=== PATIENT | female | born 1945 | race Caucasian/White ===

== ENCOUNTER 2020-03-09 11:57 | Outpatient (REF) | payer MEDICARE, OTHER, SELFPAY ==
[2020-03-09 20:58] LABS: ALT 63 U/L (14-59); AST 39 U/L (15-37); Albumin 3.5 g/dL (3.4-5.0); Alkaline Phosphatase 75 U/L (46-116); Anion Gap 7.9 mmol/L (3-11); BUN 8 mg/dL (7-18); Bilirubin, Total 0.4 mg/dL (0.2-1.0); CO2 26.1 mmol/L (21.0-32.0); CREATININE 0.71 mg/dL (0.55-1.02); Calcium 8.5 mg/dL (8.5-10.1); Calculated LDL 127 mg/dL (<100); Chloride 105 mmol/L (98-107); Cholesterol 215 mg/dL (<200); Glucose 93 mg/dL (74-106); HDL Cholesterol 45 mg/dL (40-60); Potassium 4.4 mmol/L (3.5-5.1); Sodium 139 mmol/L (136-145); TSH 2.97 uIU/mL (0.36-3.74); Triglyceride 217 mg/dL (<150); Vitamin B12 368 pg/mL (193-986)
[2020-03-09 21:12] LABS: Bilirubin, Direct 0.06 mg/dL (0.00-0.20)
== END 2020-03-09 12:17 ==
LOC: NCHCN 11:57
PROVIDERS: PCP Family Medicine; Visit Provider Family Medicine
DX: R44.8 Other symptoms and signs involving general sensations and perceptions (principal); E78.5 Hyperlipidemia, unspecified; H81.10 Benign paroxysmal vertigo, unspecified ear; Z68.41 Body mass index [BMI] 40.0-44.9, adult
CPT/HCPCS: 80053; 80061; 80076; 82607; 84443

== ENCOUNTER 2020-03-16 01:41 | Outpatient (CLI) | payer MEDICARE, OTHER, SELFPAY ==
--- NOTE | 2020-03-16 | DI.MRI_ITS ---
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 Both noninfused and contrast i nfused sequences were performed. Additional pre and post contrast infused sequences through the inte rnal auditory canals-cerebellopontine angles was performed and we also performed an additional high-r esolution sub millimeter slice T2 weighted sequence through the internal auditory canals. IV Contrast injected was 20 cc Dotarem. COMPARISON: No exams were available for comparison FINDINGS: INTERNAL AUDITORY CANALS: There is no evidence of mass in the cerebellopontine angles. The 7th and 8 th nerves are well visualized throughout the length of both internal auditory canals and appear unrem arkable. Extracranial 5th nerves also appear unremarkable as they course anteriorly towards Meckel's cave on both sides. CEREBRAL PARENCHYMA: No evidence of intracranial hemorrhage, mass effect nor shift of midline structu re. No extraaxial fluid collections. Ventricles are not enlarged nor shifted. There is no significant focal signal abnormality in the cerebellar hemispheres nor within the sri, m idbrain, and thalami. There is some mild nonspecific increased signal in the periventricular white matter. No evidence of territorial infarction. No abnormal signal on diffusion imaging. There are no ring enhancing lesions in the brain. There is no abnormal meningeal enhancement. PITUITARY GLAND: No significant mass nor parasellar abnormality. No obvious abnormality in the cavern ous sinuses. FLOW VOIDS: The expected flow void are noted. No evidence of obvious aneurysm nor obvious vascular ma lformation. PARANASAL SINUSES: The visualized paranasal sinuses appear unremarkable. ORBITS: No obvious abnormal findings. IMPRESSION: 1. No evidence of mass in the cerebellopontine angles and no evidence of intra canalicular acoustic n euroma/schwannoma. 2. No abnormal enhancing intracranial findings. No abnormal meningeal enhancement. 3. Nonspecific periventricular white foci, not associated with hemorrhage, enhancement, no abnormal signal on diffusion imaging and therefore nonspecific. DATA REPOSITORY:
[2020-03-16] MEDS: Gadoterate meglumine 20 ML VIAL IVP (14:51)
[2020-03-16] MEDS: Normal Saline Flush 10 ML SYR IVP (14:51)
== END 2020-03-16 02:01 ==
PROVIDERS: PCP Family Medicine; Visit Provider Family Medicine
DX: H81.23 Vestibular neuronitis, bilateral (principal); H81.13 Benign paroxysmal vertigo, bilateral
CPT/HCPCS: 70553

== ENCOUNTER 2020-07-23 02:14 | Outpatient (CLI) | payer MEDICARE, OTHER, SELFPAY ==
--- NOTE | 2020-07-23 10:18 | DI.MAMMO_ITS ---
Exam(s) MG MAMMO SCREENING 60 MIN DUR EXAM: MG MAMMO SCREENING 60 MIN DUR CLINICAL HISTORY: SCREENING, Z12.39, IMPLANTS TECHNIQUE: Mammograms were interpreted according to the usual protocol including computer analysis w [employer]metry[employer] CAD system, tomosynthesis and C-view imaging. COMPARISON: FINDINGS: The breasts are of moderate density. There are bilateral mammary implants. Routine views and implant displaced views were obtained. No mass or clumped microcalcification identified in either breast. Com parison with previous examinations including October 2016 shows no gross interval change from the prio r studies. IMPRESSION: No specific evidence of malignancy at this time. Routine screening examinations are suggested at year ly intervals in this age group according to the ACS ACR guidelines. BI-RADS Category 1 - Negative Breast Density - Category B - Scattered areas of fibroglandular density
== END 2020-07-23 02:34 ==
PROVIDERS: PCP Family Medicine; Visit Provider Family Medicine
DX: Z12.31 Encounter for screening mammogram for malignant neoplasm of breast (principal); Z98.82 Breast implant status
CPT/HCPCS: 77063; 77067

== ENCOUNTER 2020-08-12 18:34 | Emergency (ER) | payer MEDICARE, OTHER, SELFPAY ==
[2020-08-12 18:44] VITALS: BP 133/72; PULSE 94; RESP 18; TEMP 36.6; O2SAT 94
--- NOTE | 2020-08-12 19:57 | DI.RAD_ITS ---
Exam(s) XR FOOT LT COMPLETE EXAM: XR FOOT LT COMPLETE CLINICAL HISTORY: pain at base of 1 mtp. TECHNIQUE: 2D digital imaging was performed. COMPARISON: No exams were available for comparison FINDINGS: There is a linear lucency in the lateral aspect of the base of the 3rd metatarsal seen on the oblique view. This is possibly a nondisplaced fracture line.. No diastasis of the Lisfranc joint. There i s a sclerotic density in the plantar soft tissues measuring 6 x 5 millimeters subjacent to the neck o f the great toe metatarsal. An accessory ossicle is noted lateral to the cuboid bone. Small inferio r calcaneal spur is noted. No pes planus. No tarsal coalition evident. IMPRESSION: Possible subtle nondisplaced fracture base of the 3rd metatarsal. Correlation with site of tendernes s is recommended. DATA REPOSITORY: RADIATION DOSE DELIVERED:
--- NOTE | 2020-08-12 20:18 | DI.VRAD_ITS ---
PROCEDURE INFORMATION: Exam: XR Left Foot Exam date and time: 08/12/2020 7:18 PM Age: 75 years old Clinical indication: Pain; Foot; Left TECHNIQUE: Imaging protocol: XR Left foot. Views: 3 or more views. COMPARISON: No relevant prior studies available. FINDINGS: Bones/joints: Linear lucency is demonstrated projecting in lateral aspect, proximal shaft of the 3rd metatarsal on the frontal view, not demonstrated on oblique or lateral views. No subluxation. Degenerative changes. Soft tissues: Soft tissue swelling in plantar region about metatarsals. IMPRESSION: 1. Nondisplaced fracture cannot be excluded in proximal aspect 3rd metatarsal. 2. Soft tissue swelling. Dictated and Authenticated by: Royal Edwards MD. Ordering:LISSY Jiang MD
--- NOTE | 2020-08-12 22:25 | W.ED.GENAD ---
Discharge Plan Disposition Patient Disposition: HOME Condition: Stable Discharge Details Chief Complaint: Orthopedic Clinical Impression: Foot pain Primary Care Provider: Geno Delacruz V ED Provider: Apolinar Anderson Discharge Instructions Instructions: Foot Sprain (ED) Discharge Data Discharge Date/Time-TO BE ENTERED AT DEPARTURE: 08/12/20 20:50 Medical Decision Making 75-year-old female presents with left foot pain that began after wearing different shoes. She does have a blister on the third toe which appears to be noninfected. No evidence of DVT. Neuro, vascular, tendon intact. She does have discomfort over the medial and plantar aspect just proximal to the first MTP joint. She is scheduled be seen by her primary care provider tomorrow. Discussed options, initially she is requesting just an [place] wrap but is agreeable to obtaining an x-ray. X-ray obtained, discussed results with patient. Clinically patient has no discomfort over the proximal aspect of the third metatarsal. Clinical correlation of the x-ray leads to very little suspicion of acute fracture. Discussed options. Patient declines a walking boot. She would like an Juliano wrap and then to be discharged. She does not want to wait for her discharge instructions. Juliano wrap was applied and she was verbally discharged. She will follow up with her primary care provider tomorrow. Otherwise she will wear the Juliano wrap as tolerated, rest, elevate, cool and/or warm compresses. She declined any cane, crutches, walker, etc. She will use [id number] Tylenol and/or Motrin as directed for discomfort. Encouraged to return to the ER for new or worsening symptoms. Again, patient was verbally discharged, had no additional questions or concerns upon discharge. Medical Records Medical records reviewed: Yes I reviewed the patient's medical records. Imaging Data Radiologic Study: Attestation: I personally reviewed and interpreted this imaging study as follows: Imaging: X-Ray Radiologist's impression: X-ray of left foot reveals soft tissue swelling. Nondisplaced fracture cannot be excluded in the proximal aspect third metatarsal HPI General Mode of arrival: ambulatory. Date/Time Provider Initiated Documentation: 08/12/20 18:55. Limitations to Documentation: no limitations. Information obtained by: patient. HPI Narrative: This is a 75-year-old female, complaining of left foot pain and swelling. She denies history of DVT or PE. She states that approximately 2 weeks ago she began wearing new shoes and developed a sore or blister on her third toe. Subsequently she stopped wearing those shoes but then wore different-new shoes to yarsanism. She states that they did not fit properly and she needed to curl her toes to grab onto her shoes so she would not lose them. After this she began having increased pain at which she describes as the base of the great toe more so on the medial and plantar aspect. She denies any overt injury, redness, bruising, numbness, tingling, weakness, pain or swelling in her calf. She has appointment with her primary care provider tomorrow regarding the same issue however she states that her daughter looked at her foot and thought it looked discolored so she decided to come to the ER for further evaluation. She is concerned how long this ER visit is going to take, she is requesting that we simply Juliano wrap her foot and let her go. After further discussion, she is agreeable to a limited work-up. She states that the pain is moderate at rest, worse with movement or bearing weight, and it feels like she pulled my toe. Denies history of gout. General Stated Complaint: Orthopedic PRATIBHA: 4 Review of Systems Constitutional Constitutional: Denies fever(s) and Denies weakness Cardiovascular Cardiovascular: Denies chest pain and Denies dyspnea Respiratory Respiratory: Denies cough and Denies dyspnea Musculoskeletal Musculoskeletal: Denies deformity, Reports arthralgias, Denies joint swelling, Denies numbness, Reports stiffness and Denies tingling Integumentary/Breasts Skin/Breast: Denies erythema and Denies rash Neurologic Neurologic: Denies numbness, Denies tingling and Denies weakness [facility] Social History Smoking risk assessment performed?: No Exam Const General: cooperative, healthy appearing, comfortable and no acute distress Orientation: alert and awake [facility] Head: normal to inspection, normocephalic and atraumatic Eyes General: appearance normal, both eyes and all related structures Conjunctivae: conjunctivae normal Neck Neck: normal visual inspection, trachea midline and supple Resp Effort & Inspection: normal respiratory effort and able to speak in complete sentences Auscultation: clear to auscultation bilaterally Cardio Rate: regular rate Rhythm: regular rhythm Skin General skin exam: no rashes or lesions noted Neuro General: patient alert, patient awake, moves all extremities and no focal motor deficits Cognition: normal cognition Speech: speech normal Gait: antalgic Motor: muscle tone normal throughout Sensory Exam: no sensory deficits noted Extrem General: full ROM and capillary refill normal Left lower extremity: normal capillary refill Ankle/foot/toe images: 1. Shallow, nontender ruptured blister. There is no erythema, warmth, drainage. Neuro, vascular, tendon intact. Full range of motion. 2. Chest proximal to the first MTP joint, both on the medial and plantar aspect there is minimal swelling with diffuse discomfort. There is no warmth or erythema. There is no point tenderness over the flexor aspect of the MTP joint. Normal capillary refill. Limited range of motion of the great toe secondary to discomfort. Neuro, vascular, tendon intact. 3. There is a minimal amount of swelling across the extensor aspect of the foot. There is no temperature discrepancy. Normal capillary refill. Normal dorsalis pedal pulse. Neuro, vascular, tendon intact. Other: Left leg, hip, knee, calf unremarkable. Negative Homans' sign. No palpable cord. Calf without erythema, warmth, discomfort. Psych Appearance: grossly normal Mental Status: mental status grossly normal Course Vital Signs Vital signs: Vital Signs Temperature 36.6 C 08/12/20 18:44 Pulse 94 H 08/12/20 18:44 Respiratory Rate 18 08/12/20 18:44 Blood Pressure 133/72 08/12/20 18:44 Pulse Oximetry 94 08/12/20 18:44 Temperature 36.6 C 08/12/20 18:44 Temperature Source Oral 08/12/20 18:44 Pulse 94 H 08/12/20 18:44 Respiratory Rate 18 08/12/20 18:44 Respiratory Effort 08/12/20 19:55 Blood Pressure 133/72 08/12/20 18:44 Pulse Oximetry 94 08/12/20 18:44 Oxygen Delivery Method Room Air 08/12/20 18:44 Oxygen Flow Rate 0 08/12/20 18:44 Pain Level 6 08/12/20 18:44 Comment 08/12/20 18:44
== END 2020-08-12 20:50 | disposition home or self-care (01) ==
LOC: ER 18:50
PROVIDERS: Emergency Provider Physician Assistant; PCP Family Medicine
DX: M79.672 Pain in left foot (principal)
CPT/HCPCS: 99283; 73630

== ENCOUNTER 2020-09-01 00:50 | Outpatient (CLI) | payer MEDICARE, OTHER, SELFPAY ==
--- NOTE | 2020-09-01 09:36 | DI.RAD_ITS ---
Exam(s) XR KNEE RT 3V AP,LAT,MIGUEL EXAM: XR KNEE RT 3V AP,LAT,MIGUEL CLINICAL HISTORY: rt knee pain, m25.561. TECHNIQUE: 2D digital imaging was performed. COMPARISON: No exams were available for comparison FINDINGS: There is a right total knee replacement. There is lucency about the tibial component medially and la terally. The orthopedic hardware is otherwise unremarkable. No acute fracture or dislocation is see n. The soft tissues are unremarkable. Please correlate with patient's symptoms for loosening or inf ection. Follow-up as clinically appropriate. IMPRESSION: DATA REPOSITORY: RADIATION DOSE DELIVERED:
== END 2020-09-01 01:10 ==
PROVIDERS: PCP Family Medicine; Visit Provider Family Medicine
DX: M25.561 Pain in right knee (principal); Z96.651 Presence of right artificial knee joint
CPT/HCPCS: 73562

== ENCOUNTER 2021-04-27 15:24 | Outpatient (REF) | payer MEDICARE, SELFPAY ==
[2021-04-27 19:38] LABS: HCT 41.5 % (36.0-46.0); HGB 13.3 g/dL (11.2-15.7); MCV 93.7 fL (80-95); MPV 11.4 fL (8.0-11.0); Platelet Count 328 10^3/uL (130-400); RBC 4.43 10^6/uL (3.93-5.22); RDW 12.3 % (11.7-14.6); RDW-SD 42.7 fL; WBC 6.76 10^3/uL (4.4-10.8)
[2021-04-27 19:57] LABS: Hemoglobin A1C 5.7 % (<5.7)
[2021-04-27 20:23] LABS: ALT 91 U/L (14-59); AST 55 U/L (15-37); Albumin 3.7 g/dL (3.4-5.0); Alkaline Phosphatase 78 U/L (46-116); Anion Gap 8.1 mmol/L (3-11); BUN 11 mg/dL (7-18); Bilirubin, Total 0.4 mg/dL (0.2-1.0); CO2 28.9 mmol/L (21.0-32.0); CREATININE 0.7 mg/dL (0.55-1.02); Calcium 9.2 mg/dL (8.5-10.1); Chloride 102 mmol/L (98-107); Glucose 91 mg/dL (74-106); Potassium 4.6 mmol/L (3.5-5.1); Sodium 139 mmol/L (136-145); TSH (W/Ref FT4) 2.98 uIU/mL (0.36-3.74); Total Protein 7.3 g/dL (6.4-8.2); Vitamin B12 387 pg/mL (193-986)
== END 2021-04-27 15:25 | disposition home or self-care (01) ==
LOC: NCHCN 15:24
PROVIDERS: PCP Family Medicine; Visit Provider Family Medicine
DX: Z86.2 Personal history of diseases of the blood and blood-forming organs and certain disorders involving the immune mechanism (principal); G62.9 Polyneuropathy, unspecified; R79.89 Other specified abnormal findings of blood chemistry
CPT/HCPCS: 80053; 85027; 82607; 83036; 84443

== ENCOUNTER 2021-05-28 17:56 | Outpatient (REF) | payer MEDICARE, SELFPAY ==
[2021-05-31 13:54] LABS: COVID-19 RT-PCR UVMMC Result Negative (Negative)
== END 2021-05-28 17:57 | disposition home or self-care (01) ==
LOC: NCHCN 17:56
PROVIDERS: PCP Family Medicine; Visit Provider Family Medicine
DX: Z20.822 Contact with and (suspected) exposure to COVID-19 (principal)
CPT/HCPCS: U0003

== ENCOUNTER 2021-06-06 14:28 | Inpatient (IN) | payer MEDICARE, SELFPAY ==
[2021-06-06] VITALS (36 sets, daily range): BP systolic 117–157; BP diastolic 67–132; PULSE 103–128; RESP 14–27; TEMP 36.1–36.6; O2SAT 86–99
--- NOTE | 2021-06-06 15:00 | DI.RAD_ITS ---
Exam(s) XR ABD FLAT UPRIGHT PA CHEST EXAM: XR ABD FLAT UPRIGHT PA CHEST CLINICAL HISTORY: vomiting. TECHNIQUE: 2D digital imaging was performed. COMPARISON: CR LEFT SHOULDER COMPLETE from 07/06/[address] ABDOMEN PELVIS WO from 06/06/2021 FINDINGS: 3 views Chest x-ray: Heart size normal. Mediastinum is not widened. Lungs are clear. No pleural effusions. Abdomen some dilated bowel loops. No free air. Difficult to assess accurately due to technique See separate CT report IMPRESSION: DATA REPOSITORY: RADIATION DOSE DELIVERED:
[2021-06-06 15:01] LABS: Abs Immature Grans 0.05 10^3/uL (0.0-0.06); Absolute Basophil Count 0.01 10^3/uL (0.0-0.2); Absolute Eosinophil Count 0.01 10^3/uL (0.0-0.7); Absolute Lymphocyte Count 1.07 10^3/uL (1.2-3.4); Absolute Monocyte Count 0.96 10^3/uL (0.1-0.8); Absolute Neutrophil Count 12.49 10^3/uL (1.2-6.7); Basophils % 0.1; Eosinophils % 0.1; HCT 31.9 % (36.0-46.0); HGB 10.6 g/dL (11.2-15.7); Immature Grans % 0.3; Lymphocytes % 7.3; MCH 30.1 pg (27.0-33.0); MCHC 33.2 % (32.0-36.0); MCV 90.6 fL (80-95); MPV 11.1 fL (8.0-11.0); Monocytes % 6.6; Neutrophils % 85.6; Nucleated RBC 0 %; Platelet Count 322 10^3/uL (130-400); RBC 3.52 10^6/uL (3.93-5.22); RDW 12.5 % (11.7-14.6); RDW-SD 40.8 fL; WBC 14.59 10^3/uL (4.4-10.8)
[2021-06-06] MEDS: Lactated Ringers 500 ML IV (15:11)
[2021-06-06] MEDS: HYDROmorphone 2 MG/ML VIAL 0.5 MG IVP (15:19)
[2021-06-06] MEDS: Famotidine 20 MG/2 ML VIAL IVP (15:22)
[2021-06-06 15:23] LABS: ALT 29 U/L (14-59); AST 23 U/L (15-37); Alkaline Phosphatase 73 U/L (46-116); Anion Gap 9.9 mmol/L (3-11); BUN 17 mg/dL (7-18); Bilirubin, Total 0.7 mg/dL (0.2-1.0); CO2 26.1 mmol/L (21.0-32.0); CREATININE 0.7 mg/dL (0.55-1.02); Calcium 8.7 mg/dL (8.5-10.1); Chloride 98 mmol/L (98-107); Glucose 135 mg/dL (74-106); Lipase 52 U/L (73-393); Magnesium 1.9 mg/dL (1.8-2.4); Potassium 3.6 mmol/L (3.5-5.1); Sodium 134 mmol/L (136-145); Troponin I < 50 ng/L (<or=60)
--- NOTE | 2021-06-06 15:45 | DI.CT_ITS ---
Exam(s) CT ABDOMEN PELVIS WO EXAM: CT ABDOMEN PELVIS WO CLINICAL HISTORY: vomiting post knee sx, assess for sbo. TECHNIQUE: Imaging Protocol: Axial computed tomography images with coronal and sagittal reformatted images were created and reviewed CONTRAST MATERIAL: Intravenous: none Oral: None COMPARISON: No exams were available for comparison FINDINGS: VISUALIZED LUNG BASES: No infiltrates. No pleural effusions.. Bilateral breast implants noted ABDOMEN: There is no ascites in the upper abdomen. LIVER: There are no obvious focal hepatic lesions evident of this noninfused study. GALLBLADDER/BILIARY: No obvious gallbladder pathology. CBD is not dilated. PANCREAS: No evidence of pancreatic mass nor dilatation of the pancreatic duct. SPLEEN: Spleen is not enlarged. No obvious intrasplenic lesions. ADRENALS: There are no significant adrenal masses. KIDNEYS:No cysts evident. No solid renal masses. No calculi nor hydronephrosis. . ABDOMINAL AORTA: Abdominal aorta is not enlarged. LYMPH NODES: There is no retroperitoneal nor paraaortic adenopathy. ABDOMINAL WALL: No evidence of significant anterior abdominal wall nor inguinal hernia. GI: There is a distal small bowel obstruction with bowel loops distended to diameter up to 3.6 cm and transition point to collapsed small bowel caliber in the right lower quadrant. The colon is not col lapsed. Small amount of fluid in the dependent aspect of the pelvis. PELVIS: LYMPH NODES: There is no intrapelvic nor inguinal adenopathy. GI: No evidence of appendicitis.Sigmoid diverticuli but no evidence of acute diverticulitis. URINARY BLADDER: Uterus surgically absent. No abnormal adnexal masses. REPRODUCTIVE: No significant focal findings in the urinary bladder. OSSEOUS: Right hip prosthesis. Degenerative disc disease. No listhesis. No significant osseous les ions. IMPRESSION: 1. Findings are consistent distal small bowel obstruction with transition point in the right lower qu adrant. No obvious mass. Probably related to adhesions. 2. There is a small amount of free fluid in the dependent aspect of the pelvis which is most probably related to the bowel obstruction. There is no free air. 3. Sigmoid diverticuli but no evidence of acute diverticulitis. Uterus is surgically absent. No abnormal adnexal masses. RADIATION DOSE DELIVERED: 1,393.9mGy.cm Total DLP DATA REPOSITORY: All CT scans at this facility are submitted to the National Radiology Data Registry (NRDR) Dose Index Registry (DIR) with the [employer] (ACR). RADIATION OPTIMIZATION: All CT scans at this facility use at least one of these dose optimization te chniques: automated exposure control; mA and/or kV adjustment per patient size (includes targeted exa ms where dose is matched to clinical indication); or iterative reconstruction.
--- NOTE | 2021-06-06 16:34 | DI.VRAD_ITS ---
Addendum created by Ashtyn Abreu MD on 06/06/2021 4:35:33 PM EDT: THIS REPORT CONTAINS FINDINGS THAT MAY BE CRITICAL TO PATIENT CARE. The study was personally discussed on the telephone with SNEHA Malave on 06/06/2021 4:35 PM EDT. The results were understood and acknowledged. Initial report created on 06/06/2021 4:33:46 PM EDT: PROCEDURE INFORMATION: Exam: CT Abdomen And Pelvis Without Contrast Exam date and time: 06/06/2021 4:03 PM Age: 75 years old Clinical indication: Other: Vomiting post knee SX, assess for sbo TECHNIQUE: Imaging protocol: Computed tomography of the abdomen and pelvis without contrast. COMPARISON: CR XR ABD FLAT UPRIGHT PA CHEST 06/06/2021 3:42 PM FINDINGS: Lungs: Minimal atelectasis in the visualized lung bases. Heart: Mild cardiomegaly. No pericardial effusion. Mitral annular and aortic valvular calcifications. [id number] coronary artery calcifications. Diaphragm: Moderate size hiatal hernia. Liver: Normal. No mass. Gallbladder and bile ducts: Normal. No calcified stones. No ductal dilation. Pancreas: Normal. No ductal dilation. Spleen: Normal. No splenomegaly. Adrenal glands: Normal. No mass. Kidneys and ureters: Normal. No hydronephrosis. Stomach and bowel: Dilated fluid-filled loops of small bowel with multiple air-fluid levels along with gastric distension and gastric air-fluid level. The transition point is likely within abruptly tapering small bowel loops in the right lower quadrant best seen on series 2, image 74 and series 3, image 41 from probable postsurgical adhesions. Nondistended left hemicolon with scattered diverticula but no acute diverticulitis. Appendix: Appendix is normal in caliber. No periappendiceal edema. No findings to suggest acute appendicitis. Intraperitoneal space: Small volume pelvic free fluid. Mild mesenteric edema. No free air. Vasculature: Unremarkable. No abdominal aortic aneurysm. Lymph nodes: Unremarkable. No enlarged lymph nodes. Urinary bladder: Unremarkable as visualized. Reproductive: Uterus and ovaries have been surgically removed. Bones/joints: Right total hip arthroplasty. There are diffuse enthesopathic changes consistent with benign diffuse idiopathic skeletal hyperostosis (DISH). Soft tissues: Unremarkable. IMPRESSION: Acute small bowel obstruction with likely transition point in the right lower quadrant from an adhesion. Dictated and Authenticated by: Ashtyn Abreu MD. Ordering:DANTE Webber MD
--- NOTE | 2021-06-06 16:37 | DI.VRAD_ITS ---
PROCEDURE INFORMATION: Exam: XR Complete Acute Abdomen Series Including Chest Exam date and time: 06/06/2021 3:42 PM Age: 75 years old Clinical indication: Other: Vomiting; Additional info: Patient refused to stand and roll into decub stating extreme vertigo. Consulted with ordering DrGerman To evaluate whether to finish routine or send to CT. Dr instructed to stop exam and put in CT order. TECHNIQUE: Imaging protocol: XR complete acute abdomen series, including 2 or more views of the abdomen and a single view chest. COMPARISON: CR LEFT SHOULDER COMPLETE 07/06/2016 12:07 PM FINDINGS: Lungs: The lungs are clear without opacity or suspicious parenchymal finding. Pleural spaces: Normal. No pleural effusions. No pneumothorax. Heart/Mediastinum: Normal. No cardiomegaly. Gastrointestinal tract: Moderate distention of left upper quadrant small bowel loops the 4.2 cm in diameter. Gas identified in the transverse colon. Intraperitoneal space: Normal. No free air. Bones/joints: There are diffuse enthesopathic changes consistent with benign diffuse idiopathic skeletal hyperostosis (DISH).. No acute fracture. Soft tissues: Normal. IMPRESSION: Moderate grade partial small bowel obstruction. Please see separate CT report for detailed characterization. Dictated and Authenticated by: Ashtyn Abreu MD. Ordering:DANTE Webber MD
--- NOTE | 2021-06-06 16:38 | ED.GENADUL_ITS ---
Discharge Plan Disposition Patient Disposition: [facility] INPATIENT Condition: Serious Discharge Details Clinical Impression: Small bowel obstruction Primary Care Provider: Geno Delacruz V ED Provider: Akbar Aviles Home Meds and New Rx's Prescriptions: No Action ergocalciferol (vitamin D2) [Vitamin D2] 1,250 mcg (50,000 unit) capsule 50,000 unit PO DIRECTED 0RF Rx Instructions: weekly gabapentin 400 mg capsule 400 mg PO TID 0RF Label Comments: Take 1 capsule by mouth four times a day ibuprofen 800 mg tablet 1,600 mg PO DAILY 0RF famotidine 20 mg tablet 20 mg PO QAM 0RF sumatriptan succinate 50 mg tablet 50 mg PO DAILY 0RF Label Comments: Take 1 tablet by mouth once a day as needed HEADACHE,MAY BE REPEATED IN 2 HOURS IF HEADACHE NOT IMPROVED OR RECURS. MAX DAILY DOSE IS 200 MG hydromorphone 2 mg tablet 2 mg PO PRN PRN0RF meclizine 25 mg tablet 25 mg PO PRN PRN0RF Label Comments: TAKE 1 TABLET BY MOUTH EVERY 6 HOURS NEEDED fluconazole 150 mg tablet 150 mg PO .WITH ABX TX 0RF Label Comments: TAKE 1 TABLET BY MOUTH DIRECTED NEEDED AFTER ANTIBIOTIC TREATMENT. MAY REPEAT DOSE AFTER TWO DAYS NEEDED aspirin [Aspir-81] 81 mg Tablet,Delayed Release (Dr/Ec) 81 mg PO BID 0RF Label Comments: 30 days post surgery--er 06/06/21 amoxicillin 500 mg tablet 2,000 mg PO .1 HR PRIOR DENTAL 0RF Label Comments: TAKE FOUR TS PO 1 HOUR B DAPP docusate sodium 100 mg Capsule 100 mg PO BID 0RF Medical Decision Making 75-year-old female presents 4 days status post knee surgery revision with 4 days of nausea and vomiting, inability to tolerate p.o. intake. Patient was given Zofran ODT by EMS and has had some improvement. Abdominal exam benign with hypoactive bowel sounds. Patient requesting pain medication as she has been unable to tolerate prescribed medications. Dilaudid 0.5 mg IV was administered. Labs reviewed and notable for leukocytosis 14.6. Considered acute surgical process including small bowel obstruction. X-ray of t he abdomen nondiagnostic and limited as patient unable to stand. Proceeded to CT of the abdomen pelvis. CT of the abdomen pelvis was interpreted by radiology: Small bowel obstruction. I called and spoke with Dr. Shay, on-call general surgeon, discussed ED presentation course including diagnostic, she will evaluate the patient for admission. She recommends NG tube be placed. Results and plan discussed with the patient. Ativan 1mg IV administered for anxiety prior to NG placement. NG tube placed by nursing without complication. Lab Data Lab results reviewed: Yes I reviewed the patient's lab results. Labs: Laboratory Tests Range/Units 06/06/21 06/06/21 14:18 14:18 WBC (4.4-10.8) 10^3/uL 14.59 H RBC (3.93-5.22) 10^6/uL 3.52 L Hgb (11.2-15.7) g/dL 10.6 L Hct (36.0-46.0) % 31.9 L MCV (80-95) fL 90.6 MCH (27.0-33.0) pg 30.1 MCHC (32.0-36.0) % 33.2 RDW (11.7-14.6) % 12.5 Plt Count (130-400) 10^3/uL 322 MPV (8.0-11.0) fL 11.1 H Immature Gran % 0.3 Neutrophils % 85.6 Lymphocytes % 7.3 Monocytes % 6.6 Eosinophils % 0.1 Basophils % 0.1 Nucleated RBC % % 0 Absolute Neutrophils (1.2-6.7) 10^3/uL 12.49 H Absolute Lymphocytes (1.2-3.4) 10^3/uL 1.07 L Absolute Monocytes (0.1-0.8) 10^3/uL 0.96 H Absolute Eosinophils (0.0-0.7) 10^3/uL 0.01 Absolute Basophils (0.0-0.2) 10^3/uL 0.01 Sodium (136-145) mmol/L 134 L Potassium (3.5-5.1) mmol/L 3.6 Chloride (98-107) mmol/L 98 Carbon Dioxide (21.0-32.0) mmol/L 26.1 Anion Gap (3-11) mmol/L 9.9 BUN (7-18) mg/dL 17 Creatinine (0.55-1.02) mg/dL 0.7 Estimated GFR/1.73 m2 (mL/min/1.73m2) >= 60.00 Glucose (74-106) mg/dL 135 H Calcium (8.5-10.1) mg/dL 8.7 Magnesium (1.8-2.4) mg/dL 1.9 Total Bilirubin (0.2-1.0) mg/dL 0.7 AST (15-37) U/L 23 ALT (14-59) U/L 29 Alkaline Phosphatase (46-116) U/L 73 Troponin I (<or=60) ng/L < 50 Total Protein (6.4-8.2) g/dL 7.0 Albumin (3.4-5.0) g/dL 3.0 L Lipase (73-393) U/L 52 HPI General Mode of arrival: ambulatory . Date/Time Provider Initiated Documentation: 06/06/21 14:32 . Limitations to Documentation: no limitations . Information obtained by: patient and EMS . HPI Narrative: 75-year-old female with multiple medical problems including recent knee revision 4 days ago, presents with chief complaint of vomiting. Patient notes nausea and vomiting that started [place] [facility] [place] has persisted and worsened. Nausea constant. Patient is not able to tolerate oral intake. Vomiting is severe. Patient took Zofran ODT given by EMS and notes some improvement in her nausea. Patient denies associated abdominal pain. No fever. Related Data Home Medications Medication Instructions Recorded Confirmed amoxicillin 500 mg tablet 2,000 mg PO .1 HR PRIOR DENTAL 06/06/21 06/06/21 aspirin 81 mg tablet,delayed 81 mg PO BID 06/06/21 06/06/21 release docusate sodium 100 mg capsule 100 mg PO BID 06/06/21 06/06/21 ergocalciferol (vitamin D2) 1,250 50,000 unit PO DIRECTED 06/06/21 06/06/21 mcg (50,000 unit) capsule (Vitamin D2) famotidine 20 mg tablet 20 mg PO QAM 06/06/21 06/06/21 fluconazole 150 mg tablet 150 mg PO .WITH ABX TX 06/06/21 06/06/21 gabapentin 400 mg capsule 400 mg PO TID 06/06/21 06/06/21 hydromorphone 2 mg tablet 2 mg PO PRN PRN 06/06/21 06/06/21 ibuprofen 800 mg tablet 1,600 mg PO DAILY 06/06/21 06/06/21 meclizine 25 mg tablet 25 mg PO PRN PRN 06/06/21 06/06/21 sumatriptan succinate 50 mg tablet 50 mg PO DAILY 06/06/21 06/06/21 Allergies Allergy/AdvReac Type Severity Reaction Status Date / Time hydrocodone AdvReac Intermediate migraine / Unverified 06/06/21 14:36 hallucinate morphine AdvReac Intermediate migraine / Unverified 06/06/21 14:36 hallucinate oxycodone AdvReac Intermediate migraine / Unverified 06/06/21 14:36 hallucinate General Stated Complaint: Nausea/Vomit/Diar PRATIBHA: 3 Review of Systems All systems reviewed & are unremarkable except as noted in HPI and below Constitutional Constitutional: Denies fever(s) Gastrointestinal Gastrointestinal: Reports as per HPI PFSH All Active Problems (Updated 06/06/21 @ 16:58 by Akbar Aviles MD) Foot pain (Acute) Small bowel obstruction (Acute) Social History Smoking/Tobacco Use Status: Never Smoking risk assessment performed?: Yes Alcohol Intake: never Drug use: Never Do you feel safe at home: Yes Do you feel safe in your relationship?: Yes Exam Const General: cooperative and uncomfortable HENMT Mouth: mucous membranes dry Eyes Conjunctivae: normal conjunctivae Sclera: normal sclerae Neck Neck: trachea midline and supple Resp Auscultation: clear to auscultation bilaterally, no rales, no rhonchi and no wheezes Cardio Rate: regular rate and not tachycardic Rhythm: regular rhythm GI Palpation: soft, not firm, no guarding, no masses, not rigid and nontender Auscultation: hypoactive bowel sounds Skin General skin exam: no rashes or lesions noted Neuro General: patient alert, patient awake, patient oriented x3 and tone normal Extrem General: no edema Psych Appearance: grossly normal Mental Status: mental status grossly normal Speech and Movement: speech and movement normal Course Vital Signs Vital signs: Vital Signs Temperature 36.6 C 06/06/21 14:20 Pulse 122 H 06/06/21 14:20 Respiratory Rate 18 06/06/21 14:20 Blood Pressure 157/81 H 06/06/21 14:20 Pulse Oximetry 96 06/06/21 14:20 Temperature 36.6 C 06/06/21 14:20 Temperature Source Oral 06/06/21 14:20 Pulse 103 H 06/06/21 16:16 Pulse 118 H 06/06/21 15:30 Respiratory Rate 15 06/06/21 15:30 Respiratory Effort 06/06/21 14:37 Blood Pressure 117/97 H 06/06/21 16:16 Blood Pressure Mean 100 06/06/21 16:16 Pulse Oximetry 93 06/06/21 16:20 Oxygen Delivery Method Room Air 06/06/21 14:20 Oxygen Flow Rate 0 06/06/21 14:20 Pain Level 3 06/06/21 16:19 Lab/Test Results Lab/Test Results: Laboratory Tests Range/Units 06/06/21 06/06/21 14:18 14:18 WBC (4.4-10.8) 10^3/uL 14.59 H RBC (3.93-5.22) 10^6/uL 3.52 L Hgb (11.2-15.7) g/dL 10.6 L Hct (36.0-46.0) % 31.9 L MCV (80-95) fL 90.6 MCH (27.0-33.0) pg 30.1 MCHC (32.0-36.0) % 33.2 RDW (11.7-14.6) % 12.5 Plt Count (130-400) 10^3/uL 322 MPV (8.0-11.0) fL 11.1 H Immature Gran % 0.3 Neutrophils % 85.6 Lymphocytes % 7.3 Monocytes % 6.6 Eosinophils % 0.1 Basophils % 0.1 Nucleated RBC % % 0 Absolute Neutrophils (1.2-6.7) 10^3/uL 12.49 H Absolute Lymphocytes (1.2-3.4) 10^3/uL 1.07 L Absolute Monocytes (0.1-0.8) 10^3/uL 0.96 H Absolute Eosinophils (0.0-0.7) 10^3/uL 0.01 Absolute Basophils (0.0-0.2) 10^3/uL 0.01 Sodium (136-145) mmol/L 134 L Potassium (3.5-5.1) mmol/L 3.6 Chloride (98-107) mmol/L 98 Carbon Dioxide (21.0-32.0) mmol/L 26.1 Anion Gap (3-11) mmol/L 9.9 BUN (7-18) mg/dL 17 Creatinine (0.55-1.02) mg/dL 0.7 Estimated GFR/1.73 m2 (mL/min/1.73m2) >= 60.00 Glucose (74-106) mg/dL 135 H Calcium (8.5-10.1) mg/dL 8.7 Magnesium (1.8-2.4) mg/dL 1.9 Total Bilirubin (0.2-1.0) mg/dL 0.7 AST (15-37) U/L 23 ALT (14-59) U/L 29 Alkaline Phosphatase (46-116) U/L 73 Troponin I (<or=60) ng/L < 50 Total Protein (6.4-8.2) g/dL 7.0 Albumin (3.4-5.0) g/dL 3.0 L Lipase (73-393) U/L 52
--- NOTE | 2021-06-06 16:43 | HPE_ITS ---
Date of service: 06/06/21 Time of Service: 16:44 Assessment and Plan Assessment and plan (1) Small bowel obstruction: Status: Acute Assessment and plan: -Attempt conservative therapy with bowel rest, NG tube and IV fluids. -Patient understands if medical therapy fails or if she clinically decompensates she will require surgical intervention with the possibility of an ostomy -Currently without any abdominal pain, she will be provided with IV equivalent dosing of her PO Dilaudid for her post operative knee surgery as well as PRN IV Tylenol -PRN QHS IV Benadryl per patient's request for medication to help her sleep -SQ Lovenox for DVT ppx -IV Protonix for GI PPX -PT consult requested in light of recent knee surgery and to assist with mobility exercises, ambulation is encouraged as tolerated. History of Present Illness Narrative: 75 year old female who recently [place] [facility] [place] who presents to the emergency room with intractable nausea and vomiting for the last 24 hours. She denies any fever, chills, abdominal pain and reports her last bowel movement was on . Laboratory studies were essentially normal aside from a leukocytosis of 14k. CT scan revealed evidence of small bowel obstruction with a transition point in the right lower quadrant. She has had a total abdominal hysterectomy and oophorectomy. 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 I was asked to see the patient for the above reasons. She is quite anxious in the ER during my examination and is upset that her concerns for feeling ill prior to [place] [facility] [place] not addressed. She asked multiple questions regarding treatment and length of stay, much of which are dependent on her clinical course. Review of Systems All systems reviewed & are unremarkable except as noted in HPI and below PFSH All Active Problems (Updated 06/06/21 @ 16:58 by Akbar Aviles MD) Foot pain (Acute) Small bowel obstruction (Acute) Social History Smoking/Tobacco Use Status: Never Smoking risk assessment performed?: Yes Alcohol Intake: never Drug use: Never Do you feel safe at home: Yes Do you feel safe in your relationship?: Yes Meds Allergies and Home Medications Allergies Allergy/AdvReac Type Severity Reaction Status Date / Time hydrocodone AdvReac Intermediate migraine / Unverified 06/06/21 14:36 hallucinate morphine AdvReac Intermediate migraine / Unverified 06/06/21 14:36 hallucinate oxycodone AdvReac Intermediate migraine / Unverified 06/06/21 14:36 hallucinate Home Medications Medication Instructions Recorded Confirmed Type amoxicillin 500 mg tablet 2,000 mg PO .1 HR PRIOR DENTAL 06/06/21 06/06/21 History aspirin 81 mg tablet,delayed 81 mg PO BID 06/06/21 06/06/21 History release docusate sodium 100 mg capsule 100 mg PO BID 06/06/21 06/06/21 History ergocalciferol (vitamin D2) 1,250 50,000 unit PO DIRECTED 06/06/21 06/06/21 History mcg (50,000 unit) capsule (Vitamin D2) famotidine 20 mg tablet 20 mg PO QAM 06/06/21 06/06/21 History fluconazole 150 mg tablet 150 mg PO .WITH ABX TX 06/06/21 06/06/21 History gabapentin 400 mg capsule 400 mg PO TID 06/06/21 06/06/21 History hydromorphone 2 mg tablet 2 mg PO PRN PRN 06/06/21 06/06/21 History ibuprofen 800 mg tablet 1,600 mg PO DAILY 06/06/21 06/06/21 History meclizine 25 mg tablet 25 mg PO PRN PRN 06/06/21 06/06/21 History sumatriptan succinate 50 mg tablet 50 mg PO DAILY 06/06/21 06/06/21 History Exam Const General: cooperative, healthy appearing, comfortable, no acute distress and anxious Nutritional Appearance: obese HENMT Head: normal to inspection, normocephalic and atraumatic Eyes General: appearance normal, both eyes and all related structures Resp Effort & Inspection: normal respiratory effort, able to speak in complete sentences, no audible wheezes, not labored and no respiratory distress Cardio Rate: regular rate Rhythm: regular rhythm GI Inspection: normal to inspection, non-distended and scar (pfannenstiel ) Palpation: soft, not firm, no guarding and nontender Percussion: dullness to percussion Neuro General: patient alert, patient awake and patient oriented x3 Cranial Nerves: CN's II-XI intact bilaterally Cognition: normal cognition Speech: speech normal Psych Appearance: grossly normal and well kempt Mental Status: mental status grossly normal Speech and Movement: speech and movement normal Mood: congruent mood Affect: anxious affect Attitude: cooperative Thought Process: normal Thought Content: normal Insight: insight good Judgment: judgment good Results Labs Result diagrams: 06/06/21 14:18 06/06/21 14:18 Labs: Laboratory Results - last 24 hr 06/06/21 06/06/21 14:18 14:18 WBC 14.59 H RBC 3.52 L Hgb 10.6 L Hct 31.9 L MCV 90.6 MCH 30.1 MCHC 33.2 RDW 12.5 Plt Count 322 MPV 11.1 H Immature Gran % 0.3 Neutrophils % 85.6 Lymphocytes % 7.3 Monocytes % 6.6 Eosinophils % 0.1 Basophils % 0.1 Nucleated RBC % 0 Absolute Neutrophils 12.49 H Absolute Lymphocytes 1.07 L Absolute Monocytes 0.96 H Absolute Eosinophils 0.01 Absolute Basophils 0.01 Sodium 134 L Potassium 3.6 Chloride 98 Carbon Dioxide 26.1 Anion Gap 9.9 BUN 17 Creatinine 0.7 Estimated GFR/1.73 m2 >= 60.00 Glucose 135 H Calcium 8.7 Magnesium 1.9 Total Bilirubin 0.7 AST 23 ALT 29 Alkaline Phosphatase 73 Troponin I < 50 Total Protein 7.0 Albumin 3.0 L Lipase 52 Last Vital Signs Temp 97.9 F 06/06/21 14:20 Pulse 103 H 06/06/21 16:16 Resp 15 06/06/21 15:30 BP 117/97 H 06/06/21 16:16 Pulse Ox 93 06/06/21 16:20
[2021-06-06] MEDS: Ondansetron 4 MG/2 ML VIAL (17:00)
[2021-06-06] MEDS: LORazepam 2 MG/ML VIAL 1 MG IVP (17:19)
[2021-06-06] MEDS: Lidocaine 2% Jelly 6 ML SYR (17:20)
--- NOTE | 2021-06-06 17:30 | DI.RAD_ITS ---
Exam(s) XR PORTABLE CHEST AP EXAM: XR PORTABLE CHEST AP CLINICAL HISTORY: post ng tube. TECHNIQUE: 2D digital imaging was performed. COMPARISON: CR,XR XR ABD FLAT UPRIGHT PA CHEST from 06/06/2021 FINDINGS: Single AP portable view. Heart size is upper normal. The mediastinum is not widened. There are increased markings now evident in the right lung base, more so than previous same date. Co nsistent with some developing infiltrate. There are no pleural effusions. Distal tip of the NG tube is in the fundus of the stomach. IMPRESSION: Increasing markings right lower lobe consistent with early infiltrate. No obvious pleural effusions. NG tube is in the gastric fundus. DATA REPOSITORY: RADIATION DOSE DELIVERED: All CT scans at this facility use at least one of these dose optimization techniques: automated exposure control; mA and/or kV adjustment per patient size (includes targeted e xams where dose is matched to clinical indication); or iterative reconstruction.
[2021-06-06] MEDS: Lactated Ringers 1,000 ML 75 ML IV (17:50)
[2021-06-06 18:03] LABS: Source Nasal/Nares
--- NOTE | 2021-06-06 18:14 | DI.VRAD_ITS ---
PROCEDURE INFORMATION: Exam: XR Chest Exam date and time: 06/06/2021 5:37 PM Age: 75 years old Clinical indication: Device placement; Other: Post ng tube TECHNIQUE: Imaging protocol: XR of the chest. Views: 1 view. COMPARISON: CR XR ABD FLAT UPRIGHT PA CHEST 06/06/2021 3:42 PM FINDINGS: Tubes, catheters and devices: Nasogastric tube tip and side hole within the mid stomach. Lungs: Bilateral lower lobe foci of atelectasis. Pleural spaces: Unremarkable. No pleural effusion. No pneumothorax. Heart/Mediastinum: Unremarkable. No cardiomegaly. Bones/joints: Unremarkable. IMPRESSION: Nasogastric tube tip and side hole within the mid stomach. Dictated and Authenticated by: Ashtyn Abreu MD. Ordering:DANTE Webber MD
[2021-06-06] MEDS: diphenhydrAMINE 50 MG/ML VIAL IVP ×2 (19:17→21:24)
[2021-06-06] MEDS: Normal Saline Flush 10 ML SYR IVP ×2 (19:17→21:29)
[2021-06-06] MEDS: Pantoprazole 40 MG VIAL IVP (19:17)
[2021-06-06] MEDS: HYDROmorphone 2 MG/ML VIAL 1 MG IVP (21:25)
[2021-06-06 23:21] LABS: COVID-19 PCR Negative (Negative)
[2021-06-07] MEDS: Lactated Ringers 1,000 ML 75 ML IV ×2 (00:41→14:31)
[2021-06-07] MEDS: diphenhydrAMINE 50 MG/ML VIAL IVP (04:01)
[2021-06-07] MEDS: HYDROmorphone 2 MG/ML VIAL 1 MG IVP ×5 (04:01→20:28)
[2021-06-07 04:53] VITALS: BP 118/77; PULSE 68; RESP 12; TEMP 36.6; O2SAT 99
[2021-06-07 07:02] LABS: Abs Immature Grans 0.07 10^3/uL (0.0-0.06); Absolute Basophil Count 0.04 10^3/uL (0.0-0.2); Absolute Eosinophil Count 0.11 10^3/uL (0.0-0.7); Absolute Monocyte Count 1.47 10^3/uL (0.1-0.8); Absolute Neutrophil Count 7.61 10^3/uL (1.2-6.7); Basophils % 0.3; Eosinophils % 0.9; HCT 28.9 % (36.0-46.0); HGB 9.2 g/dL (11.2-15.7); Immature Grans % 0.6; Lymphocytes % 21.1; MCH 29.7 pg (27.0-33.0); MCHC 31.8 % (32.0-36.0); MCV 93.2 fL (80-95); MPV 11.1 fL (8.0-11.0); Monocytes % 12.5; Neutrophils % 64.6; Nucleated RBC 0 %; Platelet Count 312 10^3/uL (130-400); RDW 12.8 % (11.7-14.6); RDW-SD 43.7 fL; WBC 11.78 10^3/uL (4.4-10.8)
[2021-06-07 07:04] LABS: Absolute Lymphocyte Count 2.49 10^3/uL (1.2-3.4)
[2021-06-07 07:27] LABS: ALT 25 U/L (14-59); AST 19 U/L (15-37); Albumin 2.4 g/dL (3.4-5.0); Alkaline Phosphatase 64 U/L (46-116); BUN 20 mg/dL (7-18); Bilirubin, Total 0.5 mg/dL (0.2-1.0); CREATININE 0.8 mg/dL (0.55-1.02); Calcium 8.1 mg/dL (8.5-10.1); Chloride 102 mmol/L (98-107); Glucose 103 mg/dL (74-106); Magnesium 1.9 mg/dL (1.8-2.4); Potassium 3.8 mmol/L (3.5-5.1); Sodium 137 mmol/L (136-145)
--- NOTE | 2021-06-07 08:45 | W.PM.PROGNOT ---
Date of Service Date of service: 06/07/21 Time of Service: 08:46 Assessment and Plan Assessment and plan (1) Small bowel obstruction: Status: Acute Assessment and plan: -Attempt conservative therapy with bowel rest, NG tube and IV fluids. - No abdominal pain, unable to appreciate any bowel sounds. -Pain meds ordered PRN -PRN QHS IV Benadryl per patient's request for medication to help her sleep -SQ Lovenox for DVT ppx -IV Protonix for GI PPX -PT consult requested in light of recent knee surgery and to assist with mobility exercises, ambulation is encouraged as tolerated. P// Continue conservative therapy Subjective Subjective Interval history since last seen: Patient reports that she has not passed any flatus. She states that she is having some discomfort in her left nare from the NG tube. She denies having any nause or vomiting. Exam Const General: cooperative, healthy appearing and comfortable Orientation: alert and oriented x3 Resp Effort & Inspection: normal respiratory effort, no audible wheezes and no cough GI Inspection: normal to inspection Palpation: soft, no guarding and nontender Auscultation: absent bowel sounds Objective Last Vital Signs Temp 36.6 C 06/07/21 04:53 Pulse 68 06/07/21 04:53 Resp 12 06/07/21 04:53 BP 118/77 06/07/21 04:53 Pulse Ox 99 06/07/21 04:53 Laboratory Results - last 24 hr 06/06/21 06/06/21 06/06/21 14:18 14:18 17:45 WBC 14.59 H RBC 3.52 L Hgb 10.6 L Hct 31.9 L MCV 90.6 MCH 30.1 MCHC 33.2 RDW 12.5 Plt Count 322 MPV 11.1 H Immature Gran % 0.3 Neutrophils % 85.6 Lymphocytes % 7.3 Monocytes % 6.6 Eosinophils % 0.1 Basophils % 0.1 Nucleated RBC % 0 Absolute Neutrophils 12.49 H Absolute Lymphocytes 1.07 L Absolute Monocytes 0.96 H Absolute Eosinophils 0.01 Absolute Basophils 0.01 Sodium 134 L Potassium 3.6 Chloride 98 Carbon Dioxide 26.1 Anion Gap 9.9 BUN 17 Creatinine 0.7 Estimated GFR/1.73 m2 >= 60.00 Glucose 135 H Calcium 8.7 Phosphorus Magnesium 1.9 Total Bilirubin 0.7 AST 23 ALT 29 Alkaline Phosphatase 73 Troponin I < 50 Total Protein 7.0 Albumin 3.0 L Lipase 52 COVID-19 Source Nasal/Nares SARS-CoV-2 (PCR) Negative 06/07/21 06/07/21 06:03 06:03 WBC 11.78 H RBC 3.10 L Hgb 9.2 L Hct 28.9 L MCV 93.2 MCH 29.7 MCHC 31.8 L RDW 12.8 Plt Count 312 MPV 11.1 H Immature Gran % 0.6 Neutrophils % 64.6 Lymphocytes % 21.1 Monocytes % 12.5 Eosinophils % 0.9 Basophils % 0.3 Nucleated RBC % 0 Absolute Neutrophils 7.61 H Absolute Lymphocytes 2.49 Absolute Monocytes 1.47 H Absolute Eosinophils 0.11 Absolute Basophils 0.04 Sodium 137 Potassium 3.8 Chloride 102 Carbon Dioxide 28.0 Anion Gap 7.0 BUN 20 H Creatinine 0.8 Estimated GFR/1.73 m2 >= 60.00 Glucose 103 Calcium 8.1 L Phosphorus 4.0 Magnesium 1.9 Total Bilirubin 0.5 AST 19 ALT 25 Alkaline Phosphatase 64 Troponin I Total Protein 6.0 L Albumin 2.4 L Lipase COVID-19 Source SARS-CoV-2 (PCR)
--- NOTE | 2021-06-07 09:17 | PDOC.CMIN ---
- If Service Date Differs Date of service: 06/07/21 Time of Service: 09:17 Care Management Initial Assess REASON FOR HOSPITALIZATION:: SBO PAST MEDICAL HISTORY/PAST SURGICAL HISTORY:: Foot pain (Acute). Small bowel obstruction (Acute) PREVIOUS FUNCTIONAL STATUS/SOCIAL/FAMILY SUPPORTS:: Brooke had knee surgery last Monday at [facility] [place]. She is still recovering and requires assistance with ambulation at this time, as well as FWW. Brooke resides with Donal in [place]. Has patient been provided with info about the portal/API?: Yes Did the patient sign up for the portal?: No CODE STATUS:: Full Code INSURANCE COVERAGE / FINANCIAL ISSUES:: Medicare. [employer]. AARP CURRENT HOME/COMMUNITY SERVICES/EQUIPMENT:: [facility] PRIMARY CARE PHYSICIAN:: Geno Delacruz POTENTIAL DISCHARGE NEEDS:: Follow up appointments. PATIENT/FAMILY EDUCATION NEEDS:: Review discharge instructions, discuss Ask Me Three. ANTICIPATED BARRIERS TO DISCHARGE:: None identified at this time. TRANSPORTATION:: Via private vehicle with her . PLAN:: Brooke continues to be closely monitored and treated for SBO, while recovering from recent knee replacement. She is currently NPO, with NG tube in place on IVF and IV ABX. CM continues to follow.
[2021-06-07] MEDS: Normal Saline Flush 10 ML SYR IVP ×2 (10:10→16:08)
--- NOTE | 2021-06-07 10:11 | PT.INIE ---
Date of service: 06/07/21 Time of Service: 10:11 PT Notes Visit Reasons: Small Bowel Obstruction Physical Therapy Inpatient Initial Evaluation Date: 06/07/2021 Referring Doctor: Cleo Meyer MD PT Orders: PT CONSULT: recent knee replacement Precautions: Fall. Standard. WBAT on R LE with AD. Patient Profile/Admitting Diagnosis: Brooke is a 75-year-old female who presented to the ED on 06/14/2021 due to nausea, vomiting, and inability take food orally. She is status post R total knee arthroplasty revision at [facility] on postoperative day 4 and is admitted to this hospital for a diagnosis of small bowel obstruction. PMHX: All Active Problems?(Updated 06/06/21 @ 16:58 by Akbar Aviles MD) Foot pain (Acute) Small bowel obstruction (Acute) Social History/Home Situation: Lives with in a private home with 17 steps to enter and a rail on 1 side. Patient states that is looking at somebody who can put a rail on the other side for patient. Patient also has family members who live close by who can provide support as needed. Her daughter from [place] will be coming over to help with her recovery. Equipment Owned/DME: [employer] Subjective: Agreeable to PT consult. Reports pain in the right knee and 5?6/10. Per nurse Nuha patient has been given 5 mg of hydromorphone 5 minutes before PT's arrival. Reports weakness and fatigue as she states tat she has not eaten since admission. Objective: General Observation: Seated on chair. Telemetry monitoring in place. NGT in place. Mental Status: Alert and oriented as to person, place, time, and purpose. Able to pay attention, focus, and respond appropriately. Pain: 5//10 in right knee Vital Signs: WNL as monitored by nursing staff ROM: Right Upper Extremity: Shoulder Flexion WFL. Shoulder abduction WFL. Elbow flexion WFL. Wrist flexion WFL. Functional opening and closing of hand WFL. Left Upper Extremity: Shoulder Flexion WFL. Shoulder abduction WFL. Elbow flexion WFL. Wrist flexion WFL. Functional opening and closing of hand WFL. Right Lower Extremity: Hip flexion WFL. Hip abduction WFL. Knee flexion 30 degrees to 90 degrees. Knee extension -30 degrees ankle dorsiflexion WFL. Ankle plantarflexion WFL. Left Lower Extremity: Hip flexion WFL. Hip abduction WFL. Knee flexion WFL. Ankle dorsiflexion WFL. Ankle plantarflexion WFL. Strength: Right Upper Extremity: Shoulder flexors 4/5. Shoulder abductors 4/5. Elbow flexors 4/5. Elbow extensors 4/5. Clinical Unit Coordinator strong. Left Upper Extremity: Shoulder flexors 4/5. Shoulder abductors 4/5. Elbow flexors 4/5. Elbow extensors 4/5. Clinical Unit Coordinator strong. Right Lower Extremity: Hip flexors 4-/5. Hip abductors 4-/5. Knee flexors 3-/5. Knee extensors 3-/5. Ankle dorsiflexors 4/5. Ankle plantarflexors 4/5. Left Lower Extremity: Hip flexors 4/5. Hip abductors 4/5. Knee flexors 4/5. Knee extensors 4/5. Ankle dorsiflexors 4/5. Ankle plantarflexors 4/5. Bed Mobility/Transfers: Sit to stand with standby assist Stand to sit with standby assist Gait: Instructed patient with level surface ambulation of 10 feet +25 feet +25 feet contact-guard requiring assist. Justina . Step height on right decreased. Step length on right decreased. No loss of balance. Did report pain in the right knee with weight bearing. Denies dizziness, chest pain, and headache. Gabriel Beyer assisting ambulation from ICU to room 207 for this session. Balance: Static Sitting: Normal Dynamic Sitting: Normal Static Standing: Fair Dynamic Standing: Fair Special Tests: Mobility Limitations Standardized Measure [facility] AM-PAC 6 clicks Basic Mobility Inpatient Short Form: Raw Score: 20 CMS Score: 36% deficit Informed Consent/Education: Patient was instructed in purpose of PT consult and plan of care. Agreeable to proceed with established PT POC to achieve personal goals. Assessment: Brooke demonstrates functional mobility decline, generalized weakness, and increased risk for fall due to admitting diagnoses. Brooke is a 75-year-old female who presented to the ED on 06/14/2021 due to nausea, vomiting, and inability take food orally. She is status post R total knee arthroplasty revision at [facility] on postoperative day 4 and is admitted to this hospital for a diagnosis of small bowel obstruction. Patient presents with clinical signs and symptoms consistent with current/admitting diagnoses that have resulted to mobility limitations, gait instability, generalized weakness, and overall ADL decline as demonstrated by the following impairment level findings: 1. Decreased strength to R LE major muscle groups 2. Impaired sitting/standing balance 3. Impaired activity tolerance 4. Limitation of joint range of motion in R knee 5. Shortness of breath 6. Fatigue Impairments are contributing to the following functional limitations: 1. Decline in bed mobility skills 2. Decline in transfer skills 3. Difficulty with ambulation without assistive device and physical assistance 4. Increased completion time for mobility ADL performance 5. Increased risk for falls 6. Difficulty with managing steps alone safely Patient is assessed as a 44995 moderate complexity based on the following: History: 75-year-old female 36 past medical history as indicated above Examination: Demonstrable impairment in strength, balance, and mobility level with underlying impairments and functional limitations as exhibited above as well as deficit score of % utilizing the [facility] Mobility Inpatient Short Form Presentation: Evolving Decision Makin moderate complexity Goals: Goals X1 week 1. Supine-Sit independent 2. Sit-Supine independent 3. Sit-Stand independent 4. Stand-Sit independent with FWW 5. Bed-Chair independent with FWW 6. Chair-Bed independent with FWW 7. Independent gait on level surface with use of FWW for at least 300 feet without report of pain nor dyspnea 8. Independent stair negotiation while holding onto 1 rail for at least 17 steps without report of pain nor dyspnea 9. Independent with home exercise program 10. Good static and dynamic standing balance/tolerance Plan of Care/Treatment Plan: 1-2x/day, 7 days/week x 1 week. Plan of care has been reviewed with the GOVERNMENT PROFESSOR providing the service under Physical Therapy direction. Initiate Physical Therapy intervention for pain management as needed, strengthening, bed mobility, transfers, gait, stairs, balance training, and use of assistive device. DISCHARGE RECOMMENDATIONS: [] Home with no services [] [] Home with services [specify] [] Home with outpatient PT [] [] SNF for continued rehabilitation [] [] [facility] Branch Chief Care [] [] SNF versus LTC based on ability to participate and progress [] [X] SNF versus PT depending on the trajectory of small bowel obstruction TREATMENT CODE/TIME: 10326 x 25 minutes beginning at 10:11 AM. Thank you for the opportunity to participate in the care of this patient. Yudith Campos PT, DPT, CLT [facility], [place]
--- NOTE | 2021-06-07 10:28 | NUR.NOTE ---
Nursing Note: pt was moved from ICU to med/surg at 10:25. Report taken from RENETTA Silva.
[2021-06-07] MEDS: Lidocaine 2% Jelly 11 ML SYR UR (10:45)
[2021-06-07 11:38] VITALS: BP 131/88; PULSE 102; RESP 19; TEMP 37; O2SAT 94
[2021-06-07] MEDS: ACETAMINOPHEN 1,000 MG/100 ML BTL 400 MG IVPB ×2 (12:02→23:36)
[2021-06-07] MEDS: Enoxaparin 40 MG/0.4 ML SYR SC (12:03)
[2021-06-07 15:55] VITALS: BP 126/80; PULSE 108; RESP 18; TEMP 36.8; O2SAT 93
[2021-06-07] MEDS: Pantoprazole 40 MG VIAL IVP (16:08)
[2021-06-07 23:30] VITALS: BP 128/78; PULSE 116; RESP 16; TEMP 37.5; O2SAT 97
[2021-06-08] MEDS: diphenhydrAMINE 50 MG/ML VIAL IVP ×2 (00:41→21:38)
[2021-06-08] MEDS: Lactated Ringers 1,000 ML 75 ML IV ×3 (00:47→21:10)
[2021-06-08] MEDS: HYDROmorphone 2 MG/ML VIAL 1 MG IVP (08:12)
[2021-06-08] MEDS: Normal Saline Flush 10 ML SYR IVP ×5 (08:15→18:27)
[2021-06-08] MEDS: Ondansetron 4 MG/2 ML VIAL IVP ×2 (08:42→21:38)
--- NOTE | 2021-06-08 08:57 | W.PM.PROGNOT ---
Documented by User: RADHA Weinstein 06/08/21 09:01 Date of Service Date of service: 06/08/21 Time of Service: 08:57 Assessment and Plan Assessment and plan (1) Small bowel obstruction: Status: Acute Assessment and plan: - Continue conservative therapy with bowel rest, NG tube and IV fluids. - No abdominal pain, minimal bowel sounds - Minimal output from NG tube -Pain meds ordered PRN -PRN QHS IV Benadryl per patient's request for medication to help her sleep -SQ Lovenox for DVT ppx -IV Protonix for GI PPX -PT consult requested in light of recent knee surgery and to assist with mobility exercises, ambulation is encouraged as tolerated. P// Continue conservative therapy (2) S/P revision of total knee: Status: Acute (3) Postoperative anemia due to acute blood loss: Status: Acute Subjective Subjective Interval history since last seen: Patient was emotional this morning, expressing frustration and worry regarding her obstruction. She states she started to feel some rumbling in her lower abdomen and she believes she has started to pass flatus. She states her pain is well controlled. Exam Const General: cooperative, healthy appearing and anxious Orientation: alert and oriented x3 Resp Effort & Inspection: normal respiratory effort, no audible wheezes and no cough GI Inspection: normal to inspection Palpation: soft, no guarding and tender Auscultation: hypoactive bowel sounds Objective Last Vital Signs Temp 37.5 C 06/07/21 23:30 Pulse 116 H 06/07/21 23:30 Resp 16 06/07/21 23:30 BP 128/78 06/07/21 23:30 Pulse Ox 97 06/07/21 23:30 Documented by User: Leigh Ann Obrien DO 06/08/21 17:09 Assessment and Plan Assessment and plan (1) Small bowel obstruction: Status: Acute Assessment and plan: - Continue conservative therapy with bowel rest, NG tube and IV fluids. - No abdominal pain, minimal bowel sounds - Minimal output from NG tube -Pain meds ordered PRN -PRN QHS IV Benadryl per patient's request for medication to help her sleep -SQ Lovenox for DVT ppx -IV Protonix for GI PPX -PT consult requested in light of recent knee surgery and to assist with mobility exercises, ambulation is encouraged as tolerated. P// Continue conservative therapy pt seen and evaluated 1500 abdomen is distended. No BS. no peritonitis. She has been up walking. She is not passing any gas. She feels like she has too, but is unable. she feels she has good ROM on knee and is not in severe pain. IV infiltrated in left upper arm. PICC placed. Pt has not been able to eat since monday. Consider TPN if no resolution of s/s in the next 24hrs. -changed dressing on knee- site is c/d/i. -cont NGT. pt can have a coke. -xray in am -PT (2) S/P revision of total knee: Status: Acute (3) Postoperative anemia due to acute blood loss: Status: Acute
[2021-06-08 10:15] VITALS: BP 137/84; PULSE 109; RESP 13; TEMP 37.5; O2SAT 92
[2021-06-08] MEDS: Enoxaparin 40 MG/0.4 ML SYR SC (11:17)
[2021-06-08] MEDS: ACETAMINOPHEN 1,000 MG/100 ML BTL 400 MG IVPB ×2 (11:18→21:08)
--- NOTE | 2021-06-08 11:23 | PDOC.CMPRO ---
- If Service Date Differs Date of service: 06/08/21 Time of Service: 11:23 Care Management Progress Note S/O: Brooke had the door closed, resting this morning. Per provider, patient expressed frustration this morning central to circumstances of admission; SBO in addition to TKA. NG tube in place, pain more managed per report-conservative treatment continues; bowel rest, NG tube and IV fluids. CM continues to follow. A: 75 year old female admitted to [facility] 06/06/21 for SBO P: Brooke continues to be closely monitored and treated. NG tube remains in place; minimal output per provider. Anticipate Brooke will return home when ready per MD, she has 17 steps to enter and is working with PT; anticipate new VNA. She will transport via private vehicle with her , Donal. CM continues to follow.
--- NOTE | 2021-06-08 11:59 | PT.INTREAT ---
Date of service: 06/08/21 Time of Service: 10:10 PT Notes Visit Reasons: Small Bowel Obstruction Inpatient Physical Therapy Treatment Note [facility] Date: 06/08/2021 PRECAUTIONS: WBAT right LE with AD SUBJECTIVE: Stated she is having a difficult morning with stomach upset and pain. Requested to hold on walking twice in am, stated she would get up this afternoon and walk. OBJECTIVE: PAIN: Abdominal upset and knee pain in am. Just given pain meds and put back to bed prior to my second arrival in am. In pm Brooke stated she was not excited to walk but once up and walking indicated she was glad to have gotten up. BED MOBILITY/TRANSFERS sit - stand: SBA Stand-sit: SBA GAIT Assistive Device: FWW Weight bearing: WBAT on right Assist: CGA Distance: 25ft x 2, short seated break x 5 minutes THEREX: In am/ pm patient performed seated ankle pumps, QS, GS, hip abd/ add, hip flexion and LAQs for 10 reps each. ASSESSMENT: Tolerated morning and afternoon PT ther exercises well. Good effort given with ambulation in pm. PLAN: Continue with current plan of care, with focus on improved functional mobility and strengthening. TREATMENT CODE/TIME: 69593y1, (15') 10:10 to 10:25 am and [id number] /48580i0, (25') 1:30 to 1:55 pm
[2021-06-08] MEDS: HYDROmorphone 2 MG/ML SYR 1 MG IVP (15:26)
[2021-06-08] MEDS: Pantoprazole 40 MG VIAL IVP (15:26)
[2021-06-08 15:38] VITALS: BP 138/85; PULSE 110; RESP 19; TEMP 37.2; O2SAT 95
--- NOTE | 2021-06-08 16:12 | CHAPLAIN ---
Brooke was up in her chair talking with two visitors. She has an NG tube because of a small bowel obstruction. She is also recovering from a recent knee [place] [facility]. Brooke is listed as being connect to [employer], but she does not attend anglican there. Her daughter is part of the anglican. Brooke was very pleasant and was happy to tell me she was having gas pains and asked me to let her nurse know, so I did.
[2021-06-08] MEDS: IRON SUCROSE COMPLEX 200 MG in Normal Saline 100 ML 400 MG IVPB (18:01)
[2021-06-08] MEDS: Lidocaine 2% Jelly 6 ML SYR TP (21:09)
[2021-06-08] MEDS: Hyoscyamine 0.125 MG SL/ORAL/CHEW SL (21:38)
[2021-06-08 23:57] VITALS: BP 135/85; PULSE 101; RESP 18; TEMP 36.8; O2SAT 97
[2021-06-09] MEDS: HYDROmorphone 2 MG/ML SYR 1 MG IVP ×3 (02:15→18:42)
--- NOTE | 2021-06-09 02:36 | NUR.NOTE ---
Patient request all 4 rails up for safety. Education was provided regarding this, however patient is adamant about her request
[2021-06-09 07:45] LABS: Anion Gap 10.5 mmol/L (3-11); BUN 14 mg/dL (7-18); CO2 26.5 mmol/L (21.0-32.0); CREATININE 0.5 mg/dL (0.55-1.02); Chloride 102 mmol/L (98-107); Glucose 91 mg/dL (74-106); Potassium 3.4 mmol/L (3.5-5.1); Sodium 139 mmol/L (136-145)
--- NOTE | 2021-06-09 08:47 | DI.RAD_ITS ---
Exam(s) XR ABDOMEN FLAT PLATE EXAM: XR ABDOMEN FLAT PLATE CLINICAL HISTORY: sbo. TECHNIQUE: 2D digital imaging was performed. COMPARISON: No exams were available for comparison FINDINGS: Single supine view There is an NG tube in the stomach. This appears to be in satisfactory position along the greater cu rvature. The stomach is not distended. However, there are distended air-filled small bowel loops on both sides of the abdomen consistent with probable element of obstruction. This is difficult to ass ess without an upright view. Also cannot assess for free air without an upright view. There does ap pear to be some air in the right-side of the colon. Right hip prosthesis noted. IMPRESSION: Distal small bowel obstruction pattern. NG tube appears to be in satisfactory position the stomach. The stomach is not distended. DATA REPOSITORY: RADIATION DOSE DELIVERED:
--- NOTE | 2021-06-09 08:53 | W.PM.PROGNOT ---
Date of Service Date of service: 06/09/21 Time of Service: 08:54 Assessment and Plan Assessment and plan (1) Small bowel obstruction: Status: Acute Assessment and plan: - Continue conservative therapy with bowel rest, NG tube and IV fluids. - No abdominal pain, unable to appreciate any bowel sounds - Will order suppository, to see if this helps stimulate bowels - Minimal output from NG tube -Pain meds ordered PRN -SQ Lovenox for DVT ppx -IV Protonix for GI PPX -Continue activity OOB and working with PT ABD X ray ordered for this morning. P// Continue conservative therapy (2) S/P revision of total knee: Status: Acute (3) Postoperative anemia due to acute blood loss: Status: Acute Subjective Subjective Interval history since last seen: Patient expresses that she has been passing flatus, while sitting on the commode to urinate. She feels grumbling in her lower abdomen. Denies any nausea. She describes having gas pains. Denies any fevers or chills. Exam Const General: cooperative and comfortable Orientation: alert and oriented x3 Resp Effort & Inspection: normal respiratory effort, no audible wheezes and no cough GI Inspection: distended Palpation: soft, no guarding and nontender Auscultation: absent bowel sounds Objective Last Vital Signs Temp 36.8 C 06/08/21 23:57 Pulse 101 H 06/08/21 23:57 Resp 18 06/08/21 23:57 BP 135/85 06/08/21 23:57 Pulse Ox 97 06/08/21 23:57 Laboratory Results - last 24 hr 06/09/21 07:20 Sodium 139 Potassium 3.4 L Chloride 102 Carbon Dioxide 26.5 Anion Gap 10.5 BUN 14 D Creatinine 0.5 L D Estimated GFR/1.73 m2 >= 60.00 Glucose 91 Calcium 8.0 L Magnesium 2.0
[2021-06-09 09:15] VITALS: O2SAT 92
[2021-06-09] MEDS: Ondansetron 4 MG/2 ML VIAL IVP (09:24)
[2021-06-09] MEDS: Normal Saline Flush 10 ML SYR IVP ×4 (09:24→23:14)
[2021-06-09] MEDS: Bisacodyl 10 MG SUPP PR (10:47)
[2021-06-09 11:32] VITALS: BP 133/85; PULSE 107; RESP 16; TEMP 36.9; O2SAT 92
--- NOTE | 2021-06-09 11:58 | CMPROGNOTE_ITS ---
- If Service Date Differs Date of service: 06/09/21 Time of Service: 11:58 Care Management Progress Note S/O: Brooke was lying in bed watching TV when CM met with her. She was alert, oriented and easily to engage in conversation. She shared that she is very happy with the care that she has received here. She is looking forward to discharging home, when she is medically ready. A: 75 year old female admitted to [facility] on 06/06/21 for SBO. P: Brooke continues to be closely monitored and treated for SBO, while recovering from recent knee replacement. She is currently NPO, with NG tube in place on IVF and IV ABX. CM continues to follow.
[2021-06-09] MEDS: Lactated Ringers 1,000 ML 75 ML IV (12:28)
--- NOTE | 2021-06-09 12:34 | PT.INTREAT ---
Date of service: 06/09/21 Time of Service: 09:20 PT Notes Visit Reasons: Small Bowel Obstruction Inpatient Physical Therapy Treatment Note [facility] Date: 06/09/2021 PRECAUTIONS:WBAT with right LE with AD SUBJECTIVE: Stated she is doing better today. Right knee pain is about the same with walking. Excited to be able to have a bowel movement in pm and was instructed she would be getting nasal tubing out in the very near future. Finds having to wear face mask with nasal tubing very uncomfortable. Wanted to wait until it is removed to take her afternoon walk. OBJECTIVE: PAIN: Right knee pain is 4/10 on 0 to 10 pain scale with ambulation in am. BED MOBILITY/TRANSFERS Sit to supine: Min assist with lifting right LE into bed Sit-stand: SBA Stand-sit: SBA GAIT Assistive Device: FWW Weight bearing: WBAT on right Assist: SBA Distance: 140ft, with one short seated rest Did not walk with patient in the pm due to having bowel movement and Nurse Juanis removing nasal tube. Nurse Thomas indicated she would walk with Brooke after she removed tubing. THEREX: Performed ankle pumps, LAQs, QS, GS, seated hip flexion and seated hip abd/adduction for 10 to 15 reps each both in am and pm. ASSESSMENT: Tolerated am session very well with good effort given. PLAN: Continue to focus on improved functional mobility for discharge home when ready. TREATMENT CODE/TIME: 77680 (15') 9:20 to 9:35 and 74846 (20') 10:10 to 10:30 am 10171 (10') 2:20 to 2:30 pm
[2021-06-09] MEDS: ACETAMINOPHEN 1,000 MG/100 ML BTL 400 MG IVPB ×2 (12:44→23:13)
[2021-06-09] MEDS: Enoxaparin 40 MG/0.4 ML SYR SC (12:44)
[2021-06-09 16:10] VITALS: PULSE 111; TEMP 37.3; O2SAT 20
[2021-06-09] MEDS: Pantoprazole 40 MG VIAL IVP (16:30)
[2021-06-09] MEDS: diphenhydrAMINE 50 MG/ML VIAL IVP (21:32)
[2021-06-09 23:27] VITALS: BP 108/71; PULSE 95; RESP 18; TEMP 36.9; O2SAT 92
[2021-06-10] MEDS: Lactated Ringers 1,000 ML 75 ML IV ×2 (00:22→15:42)
[2021-06-10] MEDS: HYDROmorphone 2 MG/ML SYR 1 MG IVP ×4 (02:48→17:28)
[2021-06-10] MEDS: Ondansetron 4 MG/2 ML VIAL IVP ×2 (02:55→14:38)
[2021-06-10 05:57] LABS: Source Nasal/Nares
[2021-06-10 06:39] LABS: COVID-19 PCR Negative (Negative)
[2021-06-10 07:25] LABS: Anion Gap 8.5 mmol/L (3-11); BUN 12 mg/dL (7-18); CO2 28.5 mmol/L (21.0-32.0); CREATININE 0.5 mg/dL (0.55-1.02); Calcium 7.4 mg/dL (8.5-10.1); Chloride 104 mmol/L (98-107); Glucose 91 mg/dL (74-106); Magnesium 1.9 mg/dL (1.8-2.4); Sodium 141 mmol/L (136-145)
[2021-06-10 07:31] VITALS: BP 136/71; PULSE 85; RESP 18; TEMP 36.8; O2SAT 96
--- NOTE | 2021-06-10 07:36 | PGE_ITS ---
Documented by User: RADHA Weinstein 06/10/21 07:39 Date of Service Date of service: 06/10/21 Time of Service: 07:36 Assessment and Plan Assessment and plan (1) Small bowel obstruction: Status: Acute Assessment and plan: - No abdominal pain, unable to appreciate any bowel sounds - (+) BM on 06/09 following suppository - NG tube d/c -Clear liquid sips -Pain meds ordered PRN -SQ Lovenox for DVT ppx -IV Protonix for GI PPX -Continue activity OOB and working with PT (2) S/P revision of total knee: Status: Acute (3) Postoperative anemia due to acute blood loss: Status: Acute Subjective Subjective Interval history since last seen: Patient reports that she continues to feel well. She is very happy the NG tube was d/c and she describes tolerating the clear liquids. She would like to have a shower today. Exam Const General: cooperative and comfortable Orientation: alert and oriented x3 GI Inspection: normal to inspection Palpation: soft, no guarding and nontender Auscultation: absent bowel sounds Objective Last Vital Signs Temp 36.8 C 06/10/21 07:31 Pulse 85 06/10/21 07:31 Resp 18 06/10/21 07:31 BP 136/71 06/10/21 07:31 Pulse Ox 96 06/10/21 07:31 Laboratory Results - last 24 hr 06/09/21 06/10/21 06/10/21 07:20 05:50 06:35 Sodium 139 141 Potassium 3.4 L 3.0 L Chloride 102 104 Carbon Dioxide 26.5 28.5 Anion Gap 10.5 8.5 BUN 14 D 12 Creatinine 0.5 L D 0.5 L Estimated GFR/1.73 m2 >= 60.00 >= 60.00 Glucose 91 91 Calcium 8.0 L 7.4 L Magnesium 2.0 1.9 COVID-19 Source Nasal/Nares SARS-CoV-2 (PCR) Negative Documented by User: Leigh Ann Obrien, DO 06/10/21 19:10 Assessment and Plan Assessment and plan (1) Small bowel obstruction: Status: Acute Assessment and plan: - No abdominal pain, unable to appreciate any bowel sounds - (+) BM on 06/09 following suppository - NG tube d/c -Clear liquid sips -Pain meds ordered PRN -SQ Lovenox for DVT ppx -IV Protonix for GI PPX -Continue activity OOB and working with PT Patient did well today and tolerated clears. She would like to try some more solid foods. She had a large bowel movement. Her abdomen is soft with good b owel sounds this evening. She is been up and walking with physical therapy. She has no abdominal pain. She feels the pain in her knee is well controlled. We will advance her to a soft low fiber diet. Hopefully DC home in a.m. Continue physical therapy as outpatient and follow-up with Ortho as previously directed. (2) S/P revision of total knee: Status: Acute (3) Postoperative anemia due to acute blood loss: Status: Acute
[2021-06-10 08:11] LABS: Platelet Count 270 10^3/uL (130-400)
--- NOTE | 2021-06-10 09:29 | PDOC.CMPRO ---
- If Service Date Differs Date of service: 06/10/21 Time of Service: 09:29 Care Management Progress Note S/O: Brooke was sitting up in bed when CM met with her. She is alert, oriented and easily to engage in conversation. She shared with CM that she is feeling better and has hope again. She had a hot shower today, and feels very well cared for. She is looking forward to discharging home and eating solid food again, when she is medically ready. A: 75 year old female admitted to [facility] on 06/06/21 for SBO. P: Brooke continues to be closely monitored and treated for SBO, while recovering from recent knee replacement. She is currently NPO, with NG tube in place on IVF and IV ABX. CM continues to follow.
[2021-06-10] MEDS: Normal Saline Flush 10 ML SYR IVP ×6 (10:04→20:45)
[2021-06-10] MEDS: POTASSIUM CHLORIDE 10 MEQ/100 ML BAG 100 MEQ IVPB ×2 (10:05→11:15)
[2021-06-10] MEDS: Enoxaparin 40 MG/0.4 ML SYR SC (12:01)
[2021-06-10 15:30] VITALS: BP 129/84; PULSE 87; RESP 18; TEMP 36.9; O2SAT 95
[2021-06-10] MEDS: Pantoprazole 40 MG VIAL IVP (15:42)
--- NOTE | 2021-06-10 16:12 | PT.INTREAT ---
Date of service: 06/10/21 Time of Service: 16:12 PT Notes Visit Reasons: Small Bowel Obstruction Inpatient Physical Therapy Treatment Note [facility] Date: 06/10/2021 PRECAUTIONS: WBAT with right LE with AD. SUBJECTIVE: Reports continued stiffness in the R knee. Reports no instability but with mild pain 1-2/10 in the R knee. Agreeable to PT consult once she got her medication from Nurse Marisol for abdominal discomfort and nausea. OBJECTIVE:? PAIN: Right knee pain is 1-2/10 ? ? ? BED MOBILITY/TRANSFERS? Sit-stand: Supervision? Stand-sit: Supervision? GAIT? Assistive Device: FWW? Weight bearing: WBAT on R Assist: SBA? Distance:? 200 feet + 100 feet + 150 feet with one seated rest and two quick standing rests Cues: Moderate cue given for increased knee flexion to tolerance to improve symmetric gait pattern Deviation: Decreased knee flexion on the R. Mild antalgic gait seen. Mild shortness of breath that resolved with rest. ? ASSESSMENT:? Significantly increased ambulation distance but with report of fatigue after activity. SOB resolved with rest. Agreed to do room exercises on her own later in the afternoon. DISCHARGE RECOMMENDATIONS: [] Home with no services [] [] Home with services [specify] [X] Home with outpatient PT. Home when medically cleared by hospitalist. May benefit from outpatient PT services in order to facilitate return to independent community ambulation without an assistive device. [] SNF for continued rehabilitation [] [] [facility] [] [] SNF versus LTC based on ability to participate and progress [] TREATMENT CODE/TIME:? 09242 x 23 minutes beginning at 16:12 PM.
[2021-06-10] MEDS: ACETAMINOPHEN 1,000 MG/100 ML BTL 100 MG IVPB (20:45)
[2021-06-10] MEDS: diphenhydrAMINE 50 MG/ML VIAL IVP (20:45)
[2021-06-10] MEDS: Gabapentin 400 MG CAP PO (20:45)
[2021-06-10 23:05] VITALS: BP 142/72; PULSE 91; RESP 18; TEMP 36.7; O2SAT 93
[2021-06-10] MEDS: Melatonin 3 MG TAB 6 MG PO (23:25)
[2021-06-11] MEDS: Lactated Ringers 1,000 ML 75 ML IV (06:16)
[2021-06-11] MEDS: Normal Saline Flush 10 ML SYR IVP (07:15)
[2021-06-11] MEDS: ACETAMINOPHEN 1,000 MG/100 ML BTL 100 MG IVPB (07:15)
[2021-06-11] MEDS: Gabapentin 400 MG CAP PO ×2 (07:15→13:04)
[2021-06-11 07:19] LABS: Anion Gap 7.4 mmol/L (3-11); BUN 7 mg/dL (7-18); CO2 28.6 mmol/L (21.0-32.0); CREATININE 0.5 mg/dL (0.55-1.02); Calcium 7.5 mg/dL (8.5-10.1); Chloride 104 mmol/L (98-107); Glucose 101 mg/dL (74-106); Magnesium 1.7 mg/dL (1.8-2.4); Sodium 140 mmol/L (136-145)
[2021-06-11 07:24] LABS: Potassium 2.9 mmol/L (3.5-5.1)
[2021-06-11] MEDS: Potassium Chloride 20 MEQ TABCR PO (08:30)
[2021-06-11 09:11] VITALS: BP 152/82; PULSE 90; RESP 18; TEMP 36.8; O2SAT 96
--- NOTE | 2021-06-11 09:37 | W.PM.DS.N ---
Date of service: 06/11/21 Time of Service: 09:37 DS: Diagnosis Discharge Diagnosis (1) Small bowel obstruction: Status: Acute (2) S/P revision of total knee: Status: Acute (3) Postoperative anemia due to acute blood loss: Status: Acute Discharge Plan Disposition Patient Disposition: HOME Condition: Improving Discharge Details Reason For Visit: Small Bowel Obstruction Admit Date/Time: 06/06/21 17:17 Admit Provider: Cleo Meyer Attending Provider: Cleo Meyer Primary Care Provider: Geno Delacruz V Hospital Course Hospital Course: Patient was admitted on 06/06 with a small bowel obstruction. She was discharged from [facility] on 10/26/2018 following a total knee revision. Had a remote history of a hysterectomy. Conservative medical measures were undertaken with NG decompression. Patient responded nicely and her bowels opened up. At the time of discharge she is ambulating well with PT. She has minimal pain from her right knee. The incision is clean dry and intact redness drainage or swelling. There is no ecchymosis. There is no fluid collection There is no. She is tolerating a soft diet. She is moving her bowels multiple times. She has no chest pain or short of breath. She has no productive cough. She has no calf pain or swelling. She has no breakdown or open sores. She has no signs of a UTI. She did receive benefit her in the hospital for her acute iron deficiency anemia from blood loss. Given her constipation and recent bowel obstruction, I do not feel iron therapy is appropriate for her. Will be discharged home on all her routine medications. Continue for therapy to tolerance. And follow-up with Ortho as previously prescribed. Patient understood all and discharged in stable and satisfactory condition. See discharge orders. She will follow-up with her primary care physician in 1 week. Home Meds and New Rx's Prescriptions: New polyethylene glycol 3350 [Miralax] 17 gram/dose powder 17 g PO DAILY PRN (Reason: constipation) Qty: 238 12RF Rx Instructions: take a dose at bedtime if no bowel movement during the day Continued ergocalciferol (vitamin D2) [Vitamin D2] 1,250 mcg (50,000 unit) capsule 50,000 unit PO DIRECTED 0RF Rx Instructions: weekly gabapentin 400 mg capsule 400 mg PO TID 0RF Label Comments: Take 1 capsule by mouth four times a day ibuprofen 800 mg tablet 1,600 mg PO DAILY 0RF famotidine 20 mg tablet 20 mg PO QAM 0RF sumatriptan succinate 50 mg tablet 50 mg PO DAILY 0RF Label Comments: Take 1 tablet by mouth once a day as needed HEADACHE,MAY BE REPEATED IN 2 HOURS IF HEADACHE NOT IMPROVED OR RECURS. MAX DAILY DOSE IS 200 MG hydromorphone 2 mg tablet 2 mg PO PRN PRN0RF meclizine 25 mg tablet 25 mg PO PRN PRN0RF Label Comments: TAKE 1 TABLET BY MOUTH EVERY 6 HOURS NEEDED fluconazole 150 mg tablet 150 mg PO .WITH ABX TX 0RF Label Comments: TAKE 1 TABLET BY MOUTH DIRECTED NEEDED AFTER ANTIBIOTIC TREATMENT. MAY REPEAT DOSE AFTER TWO DAYS NEEDED aspirin 81 mg Tablet,Delayed Release (Dr/Ec) 81 mg PO BID 0RF Label Comments: 30 days post surgery--er 06/06/21 amoxicillin 500 mg tablet 2,000 mg PO .1 HR PRIOR DENTAL 0RF Label Comments: TAKE FOUR TS PO 1 HOUR B DAPP docusate sodium 100 mg Capsule 100 mg PO BID 0RF Discharge Instructions Additional Instructions: Keep an ice bag on the incision. 20 minutes on and 20 minutes off. Ice keeps the swelling down and swelling causes pain. Make sure you wrap the ice pack in a towel and don't apply directly to the skin. -No driving x1 week or of you are taking narcotic pain medications. -Follow-up with ortho as previously scheduled. -soft diet: No beef/pork raw vegetables x1 -week. Cooked vegetables are fine -no straining to move bowels -pain meds are very constipating: if you do not move your bowels during the day, take a dose of MiraLAX at bedtime. Continue to take the Colace. -It is ok to shower. No bathe, soaking, swimming or hot tubs -Keep wound clean and dry. Wash incision with soap and water daily. Pat dry, don't rub. -Protein supplements daily (ensure or boost). You may find that your appetite is smaller. Eat 3-6 small meals throughout the day. It is important to drink lots of water after surgery, 6-10 glasses a day. -If you were given an incentive spirometry (breathing licensed practical nurse clinic nurse?), continue to do this 10x/hour while awake. -We do want you up walking, at least 5-6 times per day. This is very important to prevent pneumonia and blood clots. You can climb stairs, take them slowly. -No lifting over 5 pounds. This is very important to avoid developing a hernia in your incision. -You may find that you are very tired after surgery- this is normal. -continue physical therapy. Stand Alone Forms: Nursing Discharge Form Activity:: see above Equipment/Supplies:: No Equipment Needed Diet:: soft diet x1 week Discharge Orders Discharge Orders: Discharge Order (Routine); Ordered 06/11/21 Ordered By: Leigh Ann Obrien DS: Summary Time Spent with Patient providing and/or coordinating discharge services: Less than 30 minutes Status at Discharge Functional status at discharge: independent ambulation Overall status at discharge: patient is back to baseline Mental Status: mental status grossly normal Speech and Movement: speech and movement normal Mood: congruent mood Affect: normal affect Exam Psych Mental Status: mental status grossly normal Speech and Movement: speech and movement normal Mood: congruent mood Affect: normal affect DS: Data Vitals/I&O Vitals and I&O: Vital Signs Temperature 36.8 C 06/11/21 09:11 Temperature Source Tympanic 06/11/21 09:11 Pulse 90 06/11/21 09:11 Pulse Rhythm Regular 06/11/21 09:02 Pulse 117 H 06/06/21 17:50 Respiratory Rate 18 06/11/21 09:11 Respiratory Effort Non-Labored 06/11/21 09:02 Respiratory Depth Normal 06/11/21 09:02 Respiratory Pattern Normal 06/11/21 09:02 Blood Pressure 152/82 H 06/11/21 09:11 Blood Pressure Mean 92 06/06/21 18:23 Blood Pressure Position Supine 06/06/21 18:23 Pulse Oximetry 96 06/11/21 09:11 Oxygen Delivery Method Room Air 06/11/21 09:11 Oxygen Flow Rate 0 06/11/21 09:11 Pain Level 2 06/11/21 09:11 Intake & Output 06/10/21 06/10/21 06/11/21 11:59 23:59 11:59 Intake Total 1820.0 / 2262.5 442.5 / 2262.5 2105 / 2105 Output Total 450 / 450 Balance 1820.0 / 2262.5 442.5 / 2262.5 1655 / 1655 Intake: IV 1700.0 / 2142.5 442.5 / 2142.5 1000 / 1000 Oral 120 / 120 1105 / 1105 Output: Urine 450 / 450 Other: Urine Color Yellow Yellow Yellow Urine Appearance Clear Cloudy Clear Urine Odor None Normal None Comment could not measure void voided in commode Stool Size Smear Large Small Stool Characteristics Soft Soft Soft Formed Liquid Voiding Methods Bedside Commode Bedside Commode Bedside Commode Data Completed and Pending Labs on day of discharge: Labs from last 24 hours 06/11/21 06:15 Sodium 140 Potassium 2.9 L Chloride 104 Carbon Dioxide 28.6 Anion Gap 7.4 BUN 7 Creatinine 0.5 L Estimated GFR/1.73 m2 >= 60.00 Glucose 101 Calcium 7.5 L Magnesium 1.7 L PFSH All Active Problems (Updated 06/08/21 @ 17:07 by Leigh Ann Obrien DO) Postoperative anemia due to acute blood loss (Acute) Migraines (Chronic) Aortic stenosis (Chronic) -moderate Osteoarthritis (arthritis due to wear and tear of joints) (Chronic) S/P АНДРЕЙ (total abdominal hysterectomy) (Acute) S/P revision of total knee (Acute) Foot pain (Acute) Small bowel obstruction (Acute) Social History Smoking/Tobacco Use Status: Never Smoking risk assessment performed?: Yes Alcohol Intake: never Drug use: Never Do you feel safe at home: Yes Do you feel safe in your relationship?: Yes
--- NOTE | 2021-06-11 09:52 | W.PM.PROGNOT ---
Date of Service Date of service: 06/11/21 Time of Service: 09:53 Assessment and Plan Assessment and plan (1) Postoperative anemia due to acute blood loss: Status: Acute (2) Aortic stenosis: Status: Chronic (3) Osteoarthritis (arthritis due to wear and tear of joints): Status: Chronic (4) S/P АНДРЕЙ (total abdominal hysterectomy): Status: Acute (5) S/P revision of total knee: Status: Acute (6) Small bowel obstruction: Status: Acute Assessment and plan: Patient is tolerating regular diet. She has been able to move her bowels. She is up and ambulatory with physical therapy. Her pain is well controlled. Patient will be discharged home later today. See discharge instructions. Subjective Subjective Interval history since last seen: Pt is doing well. no headaches. No CP or SOB. no productive cough. no dysuria. no leg pain or swelling. Exam Narrative Exam Narrative: PHYSICAL EXAM GENERAL APPEARANCE: Alert, healthy appearance, oriented, in no acute distress SKIN: No rashes.? No breakdown HYDRATION: Well hydrated HEAD, EYES, EARS, NECK, THROAT: Head is normocephalic, pupils equal, round, reactive to light and accommodation, ocular movement intact, sclera clear and no jaundice. ?Dentition intact. No sore throat.? No jaw pain. No thrush NECK: Supple, Trachea midline. No JVD. LUNGS: normal respiration/nl chest excursion. ?Clear to auscultation B/l no R/R/W ?HEART: Regular rate and rhythm, EXTREMITY: No edema or cyanosis? no leg pain, redness, swelling.? No IV infiltration. Right knee incision site is clean dry and intact. There is no redness drainage swelling. There is no ecchymosis. ABDOMEN: non tender to palpation, no masses or distention, no hernias. Normal bowel sounds NEURO: no focal neuro deficits. ? Objective Last Vital Signs Temp 36.8 C 06/11/21 09:11 Pulse 90 06/11/21 09:11 Resp 18 06/11/21 09:11 BP 152/82 H 06/11/21 09:11 Pulse Ox 96 06/11/21 09:11 Laboratory Results - last 24 hr 06/11/21 06:15 Sodium 140 Potassium 2.9 L Chloride 104 Carbon Dioxide 28.6 Anion Gap 7.4 BUN 7 Creatinine 0.5 L Estimated GFR/1.73 m2 >= 60.00 Glucose 101 Calcium 7.5 L Magnesium 1.7 L
[2021-06-11] MEDS: Bacitracin 1 PACKET (11:18)
--- NOTE | 2021-06-11 11:21 | PDOC.CMDIS ---
- If Service Date Differs Date of service: 06/11/21 LACE Index Scoring Tool - Questions: Length of Stay (in days): 4 - 6 Acuity (Admit via E.D.?): Yes E.D. Visits: 2 - Answers: Total Score: 9 Risk of Readmission: Low Risk Care Management Discharge Reason for Hospitalization: SBO Discharge Plan: Discharge home via private vehicle with family. Resume a soft diet X 7 days. Follow up with community providers and discharge plan of care as prescribed. Patient/Family Education Needs: Review discharge instructions, limitations, medications and plan to follow up with community providers. ask me three.
[2021-06-11] MEDS: Acetaminophen 500 MG TAB 1000 MG PO (12:10)
--- NOTE | 2021-06-11 12:40 | PTTR_ITS ---
Date of service: 06/11/21 Time of Service: 11:30 PT Notes Visit Reasons: Small Bowel Obstruction Inpatient Physical Therapy Treatment Note [facility] Date: 06/11/2021 PRECAUTIONS: WBAT right LE with AD SUBJECTIVE: Stated she is going home after lunch. Complained of swelling and stiffness in the right knee today. Is doing her exercises regularly. Would like some cryotherapy on knee. OBJECTIVE: PAIN: Right knee is painful and stiff today. BED MOBILITY/TRANSFERS Sit-stand: SBA Stand-sit: SBA GAIT Assistive Device: FWW Weight bearing: WBAT ib right Assist: SBA Distance: 260ft THEREX: Verbally reviewed ankle pumps, quad sets, glut sets, LAQs and seated hip flexion / hip abd-adduction. Cold packs applied to right knee with leg elevated in recliner. AROM: 10 degrees extension to 92 degrees flexion STAIRS: Stated she does not need to do stairs. Has to do 17steps when she gets home and feels she has had plenty of practice. ASSESSMENT: Tolerated ambulation well. Appeared eager to get home. PLAN: Spoke with Nurse Decker regarding use of compression stockings for swelling, his is going to check to see if there are orders for [place] [facility] Indicated she will be getting PT services for knee rehab. TREATMENT CODE/TIME: 61597 (15'), 11:30 to 11:45 am
--- NOTE | 2021-06-11 18:40 | PT.INDS ---
Date of service: 06/11/21 PT Notes Visit Reasons: Small Bowel Obstruction Physical Therapy Inpatient Discharge Summary Date: 06/11/2021 Dates of service: 06/07/2021 through 06/11/2021 This is a clinical summary of care provided for the duration of dates listed above. No charge was made in the completion of this documentation. Referring Doctor:? Cleo Meyer MD PT Orders: PT CONSULT: recent knee replacement Precautions: Fall. Standard. WBAT on R LE with AD. Patient Profile/Admitting Diagnosis: Brooke is a 75-year-old female who presented to the ED on 06/14/2021 due to nausea, vomiting, and inability take food orally.? She is status post R total knee arthroplasty revision [place] [facility] [place] postoperative day 4 and is admitted to this hospital for a diagnosis of small bowel obstruction. PMHX: All Active Problems?(Updated 06/06/21 @ 16:58 by Akbar Aviles MD) Foot pain (Acute) Small bowel obstruction (Acute) Social History/Home Situation: Lives with in a private home with 17 steps to enter and a rail on 1 side.? Patient states that is looking at somebody who can put a rail on the other side for patient.? Patient also has family members who live close by who can provide support as needed.? Her daughter from [place] will be coming over to help with her recovery. Equipment Owned/DME: F[facility] Subjective: NT. See most recent CLOTHING PRESSER notes. Objective: General Observation: NT. See most recent CLOTHING PRESSER notes. Mental Status: NT. See most recent CLOTHING PRESSER notes. Pain: NT. See most recent CLOTHING PRESSER notes. Vital Signs: NT. See most recent CLOTHING PRESSER notes. ROM: Right Upper Extremity: ? Shoulder Flexion WFL. Shoulder abduction WFL. Elbow flexion WFL. Wrist flexion WFL. Functional opening and closing of hand WFL. Left Upper Extremity:? Shoulder Flexion WFL. Shoulder abduction WFL. Elbow flexion WFL. Wrist flexion WFL. Functional opening and closing of hand WFL. Right Lower Extremity: Hip flexion WFL. Hip abduction WFL. Knee flexion 30 degrees to 90 degrees.? Knee extension -30 degrees ankle dorsiflexion WFL. Ankle plantarflexion WFL. Left Lower Extremity: Hip flexion WFL. Hip abduction WFL. Knee flexion WFL. Ankle dorsiflexion WFL. Ankle plantarflexion WFL. Strength: Right Upper Extremity: Shoulder flexors 4/5. Shoulder abductors 4/5. Elbow flexors 4/5. Elbow extensors 4/5. Galley Worker strong. Left Upper Extremity: Shoulder flexors 4/5. Shoulder abductors 4/5. Elbow flexors 4/5. Elbow extensors 4/5. Galley Worker strong. Right Lower Extremity: Hip flexors 4-/5. Hip abductors 4-/5. Knee flexors 3-/5. Knee extensors 3-/5. Ankle dorsiflexors 4/5. Ankle plantarflexors 4/5. Left Lower Extremity: Hip flexors 4/5. Hip abductors 4/5. Knee flexors 4/5. Knee extensors 4/5. Ankle dorsiflexors 4/5. Ankle plantarflexors 4/5. Bed Mobility/Transfers: Sit to stand with supervision Stand to sit with supervision Gait: Instructed patient with level surface ambulation of 200 feet with standby assist. Complains of right knee stiffness and swelling requiring 1 seated break but no loss of balance. Balance: Static Sitting: Normal Dynamic Sitting: Normal Static Standing: Fair Dynamic Standing: Fair Assessment:? Brooke demonstrates functional mobility decline, generalized weakness, and increased risk for fall due to admitting diagnoses.? Brooke is a 75-year-old female who presented to the ED on 06/14/2021 due to nausea, vomiting, and inability take food orally.? She is status post R total knee arthroplasty revision at [facility] on postoperative day 4 and is admitted to this hospital for a diagnosis of small bowel obstruction. Patient presents with clinical signs and symptoms consistent with current/admitting diagnoses that have resulted to mobility limitations, gait instability, generalized weakness, and overall ADL decline as demonstrated by the following impairment level findings: 1.? Decreased strength to R LE major muscle groups 2.? Impaired sitting/standing balance 3.? Impaired activity tolerance 4.? Limitation of joint range of motion in R knee 5.? Shortness of breath 6.? Fatigue Impairments are contributing to the following functional limitations: 1.? Decline in bed mobility skills 2.? Decline in transfer skills 3.? Difficulty with ambulation without assistive device and physical assistance 4.? Increased completion time for mobility ADL performance 5.? Increased risk for falls 6.? Difficulty with managing steps alone safely Goals: Goals X1 week 1. Supine-Sit independent NOT MET 2. Sit-Supine independent NOT MET 3. Sit-Stand independent NOT MET 4. Stand-Sit independent with FWW NOT MET 5. Bed-Chair independent with FWW NOT MET 6. Chair-Bed independent with FWW NOT MET 7. Independent gait on level surface with use of FWW for at least 300 feet without report of pain nor dyspnea NOT MET 8. Independent stair negotiation while holding onto 1 rail for at least 17 steps without report of pain nor dyspnea NOT MET 9. Independent with home exercise program NOT MET 10. Good static and dynamic standing balance/tolerance NOT MET DISCHARGE RECOMMENDATIONS: [] ? Home with no services [] [] ? Home with services [specify] [X] ? Home with outpatient PT. Home when medically cleared by hospitalist. Will benefit from outpatient services in order to progress with right knee rehabilitation. [] ? SNF for continued rehabilitation [] [] ? [facility] [] [] ? SNF versus LTC based on ability to participate and progress [] [] ? SNF versus PT depending on the trajectory of small bowel obstruction TREATMENT CODE/TIME: FABY Thank you for the opportunity to participate in the care of this patient. Yudith Campos PT, DPT, CLT [facility] [place], [place]
== END 2021-06-11 13:06 | disposition home or self-care (01) | DRG 389 ==
LOC: ER 17:27 → ICU 18:06 → MS 06-07 10:27
PROVIDERS: Surgery; Admitting Provider Surgery; Emergency Provider Student in an Organized Health Care Education/Training Program; PCP Family Medicine; Visit Provider Surgery
DX: K56.609 Unspecified intestinal obstruction, unspecified as to partial versus complete obstruction (principal); D62 Acute posthemorrhagic anemia; Z96.651 Presence of right artificial knee joint; K59.00 Constipation, unspecified
CPT/HCPCS: 36415; 36569; 80048; 80053; 83690; 87635; 96361; 96374; 96375; 97110; 97140; 97162; 97530; 99222; 99232; 99238; 99284; 99285; J1650; U0005; 71045; 74018; 74022; 74176; 83735; 84100; 84484; 85025; 85049; J0131; J1170; J1200; J1756; J2060; J2405; J3480; J3490

== ENCOUNTER 2021-06-18 18:17 | Outpatient (REF) | payer MEDICARE, SELFPAY ==
[2021-06-18 19:26] LABS: HCT 34.3 % (36.0-46.0); HGB 10.6 g/dL (11.2-15.7)
[2021-06-18 20:07] LABS: Anion Gap 12.2 mmol/L (3-11); BUN 6 mg/dL (7-18); CO2 23.8 mmol/L (21.0-32.0); CREATININE 0.6 mg/dL (0.55-1.02); Calcium 8.4 mg/dL (8.5-10.1); Chloride 104 mmol/L (98-107); Glucose 107 mg/dL (74-106); Potassium 4.6 mmol/L (3.5-5.1); Sodium 140 mmol/L (136-145)
== END 2021-06-18 18:18 | disposition home or self-care (01) ==
LOC: NCHCN 18:17
PROVIDERS: PCP Family Medicine; Visit Provider Nurse Practitioner Family
DX: Z00.00 Encounter for general adult medical examination without abnormal findings (principal); K59.00 Constipation, unspecified
CPT/HCPCS: 80048; 85014; 85018

== ENCOUNTER → 2022-01-03 01:28 | Outpatient (CLI) | payer MEDICARE, SELFPAY ==
--- NOTE | 2022-01-03 11:25 | DI.MAMMO_ITS ---
Exam(s) MG MAMMO SCREENING 60 MIN DUR EXAM: MG MAMMO SCREENING 60 MIN DUR CLINICAL HISTORY: SCREENING, Z12.31 TECHNIQUE: Bilateral full field digital CC and MLO mammographic images were obtained with 3D tomosyn thesis and utilizing computer aided detection (CAD). COMPARISON: Available for comparison. FINDINGS: Masses/Architectural Distortion: There is an increased radiodensity in the retroareolar region of the left breast seen on the implant displaced views. The patient has bilateral breast implants. Microcalcifications: No suspicious pleomorphic-type are seen. Skin Thickening/Nipple Retraction: None. IMPRESSION: 1. Ovoid density in the retroareolar region of the left breast seen on the implant displaced views. 2. This area should be further evaluated with a spot compression view. Ultrasound may be indicated a t that time. BI-RADS Category 0 - Assessment Incomplete: Need additional imaging evaluation Breast Density - Category B - Scattered areas of fibroglandular density Breast density category C or D implies that the patient has dense breast tissue. Dense breast tissue is very common and is not abnormal but dense breast tissue can make it harder to find cancer on a ma mmogram. Also, dense breast tissue may increase their breast cancer risk. This information about the result of the mammogram report was provided to the patient to raise their awareness. Use this report when you speak with the patient about their risks for breast cancer, which includes their family hist ory. At that time, you may recommend for more screening tests (Ultrasound or MRI) as they might be us eful based on their risk. A negative radiographic report should not delay biopsy if a dominant or clinically suspicious mass is present. Up to ten percent of cancers are not identified on mammography. A negative report may reinforce clinical impression. Adenosis and dense breasts may obscure an underlying neoplasm. False positive reports average 6 to 10%. Patient will receive a letter notifying them of these results.
== END ==
PROVIDERS: PCP Family Medicine; Visit Provider Family Medicine
DX: Z12.31 Encounter for screening mammogram for malignant neoplasm of breast (principal); R92.8 Other abnormal and inconclusive findings on diagnostic imaging of breast
CPT/HCPCS: 77063; 77067

== ENCOUNTER → 2022-01-18 02:34 | Outpatient (CLI) | payer MEDICARE, SELFPAY ==
--- NOTE | 2022-01-18 | DI.US_ITS ---
Exam(s) MG MAMMO SCREEN CALL BACK UNI US BREAST LT COMPLETE EXAM: MG MAMMO SCREEN CALL BACK UNI- LEFT AND COMPLETE LEFT BREAST ULTRASOUND CLINICAL HISTORY: DIAGNOSTIC, F/U MAMMO, OVOID DENSITY LT BREAST, IMPLANTS. TECHNIQUE: Unilateral spot left breast mammographic images obtained with 3D tomosynthesisand [employer] computer aided detection (CAD). . Complete LEFT breast Ultrasound was also performed, including all 4 quadrants, the retroareolar regio n, and the ipsilateral axilla. COMPARISON: Prior mammograms were reviewed. This additional imaging was performed due to findings described on the recent screening mammogram of 01/03/2022.. FINDINGS: DIAGNOSTIC MAMMOGRAM: Additional mammographic views performed todayrender this area less concerning. COMPLETE LEFT BREAST ULTRASOUND: Ultrasound performed today reveals a a solitary finding which is in the retroareolar region and may c orrespond to the finding on the mammogram. This is a minimally prominent retroareolar regions duct o r cyst which measures approximately 9 by 3 millimeters. There are no other focal ultrasound findings in left breast. Scanning of the ipsilateral axilla reveals no significant adenopathy. IMPRESSION: 1. Benign-appearing findings in left breast as described above. Appropriate follow-up is repeat left breast imaging in 6 months, to include repeat left breast mammo gram and ultrasound.. The patient was informed of these findings and recommendations prior to leaving the department today. BI-RADS Category 3 - 6 month - Probably Benign Finding: Recommend follow-up mammography in 6 months Breast Density - Category B - Scattered areas of fibroglandular density Breast density Category C or D implies that the patient has dense breast tissue. Dense breast tissue can make it harder to find cancer on a mammogram. Dense breast tissue is also associated with an incr eased risk of breast cancer. This information about the result of the mammogram report was provided to the patient to raise their awareness. Use this report when you speak with the patient about their risks for breast cancer, which includes their family history. At that time, you may recommend additional screening tests (Ultrasoun d or MRI) as these tests may add significant information. A negative radiographic report should not delay biopsy if a dominant or clinically suspicious mass is present. Up to ten percent of cancers are not identified on mammography. A negative report may reinforce clinical impression. Adenosis and dense breasts may obscure an underlying neoplasm. False positive reports average 6 to 10%. Patient will receive a letter notifying them of these results.
== END ==
PROVIDERS: PCP Family Medicine; Visit Provider Family Medicine
DX: Z12.31 Encounter for screening mammogram for malignant neoplasm of breast (principal); R92.8 Other abnormal and inconclusive findings on diagnostic imaging of breast; N60.02 Solitary cyst of left breast; N60.42 Mammary duct ectasia of left breast
CPT/HCPCS: 76642; 77063; 77067

== ENCOUNTER 2022-03-08 18:12 | Outpatient (REF) | payer MEDICARE, SELFPAY ==
[2022-03-08 16:36] LABS: ALT 54 U/L (14-59); AST 39 U/L (15-37); Albumin 3.7 g/dL (3.4-5.0); Alkaline Phosphatase 88 U/L (46-116); Anion Gap 8.9 mmol/L (3-11); BUN 11 mg/dL (7-18); Bilirubin, Total 0.5 mg/dL (0.2-1.0); CO2 26.1 mmol/L (21.0-32.0); CREATININE 0.7 mg/dL (0.55-1.02); Calcium 8.8 mg/dL (8.5-10.1); Chloride 102 mmol/L (98-107); Estimated GFR 88.47 (mL/min/1.73m2); Glucose 92 mg/dL (74-106); Potassium 4.7 mmol/L (3.5-5.1); Sodium 137 mmol/L (136-145); Total Protein 7.1 g/dL (6.4-8.2)
== END 2022-03-08 18:13 | disposition home or self-care (01) ==
LOC: NCHCN 18:12
PROVIDERS: PCP Family Medicine; Visit Provider Family Medicine
DX: R79.89 Other specified abnormal findings of blood chemistry (principal); Z79.1 Long term (current) use of non-steroidal anti-inflammatories (NSAID)
CPT/HCPCS: 80053

== ENCOUNTER 2022-03-23 03:19 | Outpatient (CLI) | payer MEDICARE, SELFPAY ==
--- NOTE | 2022-03-23 11:33 | DI.RAD_ITS ---
Exam(s) XR LUMBAR SPINE COMPLETE EXAM: XR LUMBAR SPINE COMPLETE CLINICAL HISTORY: BACK PAIN WITH RADICULOPATHY, LOWER EXT, M54.16. TECHNIQUE: 2D digital imaging was performed. Five views. COMPARISON: No exams were available for comparison FINDINGS: BONES: No fracture or destructive lesion. Vertebral body heights are maintained. facet hypertrophy greatest at L4-5 and L5-S1.. No spondylolysis. DISKS: Mild narrowing of the L3-4 and L4-5 disc spaces severe narrowing of the L5-S1 disc space. End plate osteophytes are noted throughout. ALIGNMENT: Lumbar spinal alignment is within normal limits. No spondylo listhesis or significant sc oliosis. SOFT TISSUE: Normal. IMPRESSION: Multilevel degenerative disc changes and facet degenerative changes, greatest at L4-5 and L5-S1. DATA REPOSITORY: RADIATION DOSE DELIVERED:
== END 2022-03-23 03:39 ==
LOC: DI 03:20
PROVIDERS: PCP Family Medicine; Visit Provider Family Medicine
DX: M51.17 Intervertebral disc disorders with radiculopathy, lumbosacral region; M47.27 Other spondylosis with radiculopathy, lumbosacral region
CPT/HCPCS: 72110

== ENCOUNTER 2022-04-29 13:03 | Outpatient (REF) | payer MEDICARE, SELFPAY ==
[2022-04-29 15:11] LABS: Prothrombin Time 10.3 sec (9.3-11.0)
[2022-04-29 15:27] LABS: Anion Gap 9.6 mmol/L (3-11); BUN 13 mg/dL (7-18); CO2 25.4 mmol/L (21.0-32.0); CREATININE 0.8 mg/dL (0.55-1.02); Calcium 9.3 mg/dL (8.5-10.1); Chloride 104 mmol/L (98-107); Estimated GFR 75.37 (mL/min/1.73m2); Glucose 98 mg/dL (74-106); Potassium 4.3 mmol/L (3.5-5.1); Sodium 139 mmol/L (136-145)
[2022-04-29 15:30] LABS: Abs Immature Grans 0.03 10^3/uL (0.0-0.06); Absolute Basophil Count 0.05 10^3/uL (0.0-0.2); Absolute Eosinophil Count 0.04 10^3/uL (0.0-0.7); Absolute Lymphocyte Count 2.23 10^3/uL (1.2-3.4); Absolute Monocyte Count 0.77 10^3/uL (0.1-0.8); Absolute Neutrophil Count 5.48 10^3/uL (1.2-6.7); Basophils % 0.6; Eosinophils % 0.5; HCT 42.3 % (36.0-46.0); HGB 13.8 g/dL (11.2-15.7); Immature Grans % 0.3; Lymphocytes % 25.9; MCH 29.4 pg (27.0-33.0); MCHC 32.6 % (32.0-36.0); MCV 90 fL (80-95); MPV 11.3 fL (8.0-11.0); Neutrophils % 63.7; Platelet Count 352 10^3/uL (130-400); RDW 13.2 % (11.7-14.6); RDW-SD 43.4 fL
== END 2022-04-29 13:04 | disposition home or self-care (01) ==
LOC: LBN 13:03
PROVIDERS: PCP Family Medicine; Visit Provider Orthopaedic Surgery
DX: M71.38 Other bursal cyst, other site (principal)
CPT/HCPCS: 80048; 85025; 85610

== ENCOUNTER 2022-05-13 15:27 | Outpatient (REF) | payer MEDICARE, SELFPAY ==
[2022-05-13 15:13] LABS: Bilirubin Negative (Negative); Blood Negative (Negative); Clarity Sl Cloudy (Clear); Glucose Negative (Negative); Ketones Negative (Negative); Leukocyte Esterase Moderate (Negative); Nitrite Negative (Negative); Specific Gravity 1.015 (1.005-1.025); pH 8.5 (5-8)
[2022-05-13 15:23] LABS: Epithelial Cells Few HPF (Negative); RBC Negative HPF (0-2); WBC 20-50 HPF (0-5)
[2022-05-13 15:24] LABS: Bacteria Many HPF (Negative); C & S Indicated? Yes; Casts Negative LPF (Negative); Crystals Rare Triple Phos HPF (Negative); Mucus Negative (Negative); Other Cells Few Transitional (Negative)
== END 2022-05-13 15:28 | disposition home or self-care (01) ==
LOC: NCHCN 15:27
PROVIDERS: PCP Family Medicine; Visit Provider Family Medicine
DX: R30.9 Painful micturition, unspecified (principal); R82.998 Other abnormal findings in urine
CPT/HCPCS: 87077; 81003; 81015; 87086; 87186

== ENCOUNTER 2022-05-26 17:15 | Outpatient (REF) | payer MEDICARE, SELFPAY | END 2022-05-26 17:16 | disposition home or self-care (01) | LOC: NCHCN 17:15 | PROVIDERS: PCP Family Medicine; Visit Provider Family Medicine | DX: N39.0 Urinary tract infection, site not specified (principal) | CPT/HCPCS: 87077; 87086; 87186 ==

== ENCOUNTER 2022-06-14 16:19 | Outpatient (REF) | payer MEDICARE, SELFPAY | END 2022-06-14 16:20 | disposition home or self-care (01) | LOC: NCHCN 16:19 | PROVIDERS: PCP Family Medicine; Visit Provider Family Medicine | DX: R30.9 Painful micturition, unspecified (principal) | CPT/HCPCS: 87077; 87086; 87186 ==

== ENCOUNTER 2022-08-12 12:23 | Outpatient (REF) | payer MEDICARE, SELFPAY ==
[2022-08-12 15:31] LABS: HGB 12.3 g/dL (11.2-15.7); MCH 28.3 pg (27.0-33.0); MCHC 32.4 % (32.0-36.0); MCV 88 fL (80-95); MPV 11.2 fL (8.0-11.0); Platelet Count 303 10^3/uL (130-400); RBC 4.34 10^6/uL (3.93-5.22); RDW 13.7 % (11.7-14.6); RDW-SD 44.1 fL; WBC 7.31 10^3/uL (4.4-10.8)
[2022-08-12 16:43] LABS: AST 28 U/L (15-37); Calculated LDL 130 mg/dL (<100); Cholesterol 234 mg/dL (<200); Ferritin 22 ng/mL (8-252); HDL Cholesterol 47 mg/dL (40-60); Triglyceride 286 mg/dL (<150)
[2022-08-12 18:31] LABS: Hemoglobin A1C 5.5 % (<5.7)
== END 2022-08-12 12:24 | disposition home or self-care (01) ==
LOC: NCHCN 12:23
PROVIDERS: PCP Family Medicine; Visit Provider Family Medicine
DX: Z00.00 Encounter for general adult medical examination without abnormal findings (principal)
CPT/HCPCS: 80061; 85027; 82728; 83036; 84450

== ENCOUNTER 2022-10-11 02:26 | Outpatient (CLI) | payer MEDICARE, SELFPAY ==
--- NOTE | 2022-10-11 | DI.US_ITS ---
Exam(s) US BREAST LT COMPLETE MG MAMMO DIAGNOSTIC UNI EXAM: MG MAMMO DIAGNOSTIC UNI -LEFT AND COMPLETE LEFT BREAST ULTRASOUND CLINICAL HISTORY: DIAGNOSTIC, 6 MO F/U, ABNL MAMMO, R92.8. TECHNIQUE: CC and MLO left breast mammographic images were obtained with 3D tomosynthesis technique and utilizing computer aided detection (CAD). Complete breast ultrasound was performed including all 4 quadrants as well as the axillary region. COMPARISON: Prior mammograms were reviewed, the most recent being 01/03/2022/01/18/2022. Ultrasound of 01/18/2022 also reviewed.. FINDINGS: DIAGNOSTIC LEFT BREAST MAMMOGRAM: The previously described mammographic findings in left breast is actually less evident on the present study, further evidence that it is benign. No new significant mammographic findings in the left markie ast. COMPLETE LEFT BREAST ULTRASOUND: No evidence of solid or significant cystic findings in all 4 quadrants. There is a 5 x 3 millimeter benign intramammary lipoma at the 1 o'clock position. The previously described small cyst is no long er seen. Scanning of the left axilla is negative for adenopathy. IMPRESSION: 1. No radiographic evidence of malignancy in left breast. 2. Benign left breast ultrasound findings. Appropriate follow-up is to keep this patient on her yearly mammogram schedule, implying the next [facility] mammogram would be in 6 months.. The patient was informed of the findings and follow-up recommendations prior to leaving the [facility] today. BI-RADS Category 2 - Benign Findings Breast Density - Category B - Scattered areas of fibroglandular density Breast density Category C or D implies that the patient has dense breast tissue. Dense breast tissue can make it harder to find cancer on a mammogram. Dense breast tissue is also associated with an incr eased risk of breast cancer. This information about the result of the mammogram report was provided to the patient to raise their awareness. Use this report when you speak with the patient about their risks for breast cancer, which includes their family history. At that time, you may recommend additional screening tests (Ultrasoun d or MRI) as these tests may add significant information. A negative radiographic report should not delay biopsy if a dominant or clinically suspicious mass is present. Up to ten percent of cancers are not identified on mammography. A negative report may reinforce clinical impression. Adenosis and dense breasts may obscure an underlying neoplasm. False positive reports average 6 to 10%. Patient will receive a letter notifying them of these results.
== END 2022-10-11 02:46 ==
LOC: DI 02:26
PROVIDERS: PCP Family Medicine; Visit Provider Family Medicine
DX: R92.8 Other abnormal and inconclusive findings on diagnostic imaging of breast (principal); Z12.31 Encounter for screening mammogram for malignant neoplasm of breast
CPT/HCPCS: 76642; 77061; 77065; G0279

== ENCOUNTER 2022-10-27 18:43 | Outpatient (REF) | payer MEDICARE, SELFPAY | END 2022-10-27 18:44 | disposition home or self-care (01) | LOC: NCHCN 18:43 | PROVIDERS: PCP Family Medicine; Visit Provider Family Medicine | DX: N76.0 Acute vaginitis (principal); R30.0 Dysuria | CPT/HCPCS: 87086; 87480; 87510; 87660 ==

== ENCOUNTER 2023-03-14 16:04 | Outpatient (REF) | payer MEDICARE, SELFPAY | END 2023-03-14 16:05 | disposition home or self-care (01) | LOC: NCHCN 16:04 | PROVIDERS: PCP Family Medicine; Visit Provider Physician Assistant | DX: N39.0 Urinary tract infection, site not specified (principal) | CPT/HCPCS: 87086 ==

== ENCOUNTER 2023-04-20 14:14 | Outpatient (REF) | payer MEDICARE, SELFPAY ==
[2023-04-20 16:59] LABS: Anion Gap 9.5 mmol/L (3-11); BUN 17 mg/dL (7-18); CO2 25.5 mmol/L (21.0-32.0); CREATININE 0.7 mg/dL (0.55-1.02); Calcium 9.1 mg/dL (8.5-10.1); Chloride 103 mmol/L (98-107); Estimated GFR 87.92 (mL/min/1.73m2); Glucose 97 mg/dL (74-106); Potassium 4.8 mmol/L (3.5-5.1); Sodium 138 mmol/L (136-145)
== END 2023-04-20 14:15 | disposition home or self-care (01) ==
LOC: NCHCN 14:14
PROVIDERS: PCP Family Medicine; Visit Provider Family Medicine
DX: Z51.81 Encounter for therapeutic drug level monitoring (principal)
CPT/HCPCS: 80048

== ENCOUNTER 2023-12-04 19:11 | Outpatient (REF) | payer MEDICARE, SELFPAY ==
[2023-12-04 19:11] LABS: Bilirubin Negative (Negative); Blood Trace-intact (Negative); Clarity Cloudy (Clear); Glucose Negative (Negative); Ketones Negative (Negative); Leukocyte Esterase Large (Negative); Nitrite Negative (Negative); Specific Gravity 1.015 (1.005-1.025); Urobilinogen 0.2 mg/dL (Up to 0.2)
[2023-12-04 19:28] LABS: Bacteria Many HPF (Negative); C & S Indicated? Yes; Casts Negative LPF (Negative); Crystals Negative HPF (Negative); Epithelial Cells Few HPF (Negative); Mucus Negative (Negative); RBC 0-2 HPF (0-2); WBC >50 HPF (0-5)
== END 2023-12-04 19:12 | disposition home or self-care (01) ==
LOC: NCHCN 19:11
PROVIDERS: PCP Family Medicine; Visit Provider Physician Assistant Medical
DX: R30.0 Dysuria (principal); R82.89 Other abnormal findings on cytological and histological examination of urine; B96.29 Other Escherichia coli [E. coli] as the cause of diseases classified elsewhere
CPT/HCPCS: 87077; 81003; 81015; 87086; 87186

== ENCOUNTER 2023-12-19 18:29 | Outpatient (REF) | payer MEDICARE, SELFPAY | END 2023-12-19 18:30 | disposition home or self-care (01) | LOC: NCHCN 18:29 | PROVIDERS: PCP Family Medicine; Visit Provider Family Medicine | DX: N39.0 Urinary tract infection, site not specified (principal); R82.89 Other abnormal findings on cytological and histological examination of urine | CPT/HCPCS: 87086 ==

== ENCOUNTER 2024-09-18 22:55 | Outpatient (REF) | payer MEDICARE, SELFPAY | END 2024-09-18 22:56 | disposition home or self-care (01) | LOC: LBN 22:55 | PROVIDERS: PCP Family Medicine; Visit Provider Physician Assistant | DX: N39.0 Urinary tract infection, site not specified (principal) | CPT/HCPCS: 87086 ==

== ENCOUNTER 2024-10-19 12:55 | Outpatient (REF) | payer MEDICARE, SELFPAY ==
[2024-10-19 16:41] LABS: Glucose Negative (Negative)
== END 2024-10-19 12:56 | disposition home or self-care (01) ==
LOC: LBN 12:55
PROVIDERS: PCP Family Medicine; Visit Provider Nurse Practitioner Family
DX: R35.0 Frequency of micturition (principal); R30.0 Dysuria
CPT/HCPCS: 81003; 81015; 87480; 87510; 87660

== ENCOUNTER 2024-11-29 15:13 | Outpatient (REF) | payer MEDICARE, SELFPAY ==
[2024-11-29 19:31] LABS: HCT 40.4 % (36.0-46.0); HGB 13.0 g/dL (11.2-15.7); MCH 30.0 pg (27.0-33.0); MCHC 32.2 % (32.0-36.0); MCV 93 fL (80-95); MPV 11.4 fL (8.0-11.0); Platelet Count 287 10^3/uL (130-400); RBC 4.34 10^6/uL (3.93-5.22); RDW 12.7 % (11.7-14.6); RDW-SD 43.4 fL; WBC 6.48 10^3/uL (4.4-10.8)
[2024-11-29 19:46] LABS: COMMENT (LAB VIEW ONLY) 89.39 mg/dL; Microalb ug/mg Crea 6.8 ug/mg Cr
[2024-11-29 19:51] LABS: Anion Gap 6.8 mmol/L (3-11); BUN 16 mg/dL (7-18); CO2 28.2 mmol/L (21.0-32.0); Calcium 9.3 mg/dL (8.5-10.1); Calculated LDL 120 mg/dL (<100); Chloride 102 mmol/L (98-107); Cholesterol 212 mg/dL (<200); Estimated GFR 86.83 (mL/min/1.73m2); Glucose 90 mg/dL (74-106); HDL Cholesterol 54 mg/dL (>or=50); Potassium 5.4 mmol/L (3.5-5.1); Sodium 137 mmol/L (136-145); TSH (W/Ref FT4) 2.40 uIU/mL (0.36-3.74); Triglyceride 193 mg/dL (<150)
[2024-11-29 19:55] LABS: Hemoglobin A1C 5.4 % (<5.7)
== END 2024-11-29 15:14 | disposition home or self-care (01) ==
LOC: NCHCN 15:13
PROVIDERS: PCP Family Medicine; Visit Provider Family Medicine
DX: M19.90 Unspecified osteoarthritis, unspecified site (principal); R73.03 Prediabetes
CPT/HCPCS: 80048; 80061; 85027; 82043; 82570; 83036; 84443